=== PATIENT | female | born 1995 | race Caucasian/White ===

== ENCOUNTER 2016-06-24 22:29 | Observation (INO) | payer MEDICAID ==
[2016-06-24 23:15] LABS: Bacteria FEW /HPF (NEGATIVE); COMPLETE URINE MICROSCOPIC? YES; Collection Type CLEAN CATCH; Epithelial Cells FEW /HPF (FEW); Mucus SLIGHT /HPF (NEGATIVE); Ph 6.5 (5-6)
[2016-06-24] MEDS ORDERED: TYLENOL EXTRA STRENGTH 500 MG PO ONE (23:52)
[2016-06-24] MEDS ORDERED: TYLENOL EXTRA STRENGTH 500 MG ONE (23:58)
[2016-06-25 03:09] VITALS: BP 108/62; PULSE 88
== END 2016-06-25 02:45 | disposition home or self-care (01) ==
LOC: MED SURG 22:29
PROVIDERS: ADMIT Family Medicine; ATTEND Family Medicine
DX: Z34.83 Encounter for supervision of other normal pregnancy, third trimester (principal); S80.211A Abrasion, right knee, initial encounter; M25.472 Effusion, left ankle; W01.198A Fall on same level from slipping, tripping and stumbling with subsequent striking against other object, initial encounter; Y92.009 Unspecified place in unspecified non-institutional (private) residence as the place of occurrence of the external cause
CPT/HCPCS: 80307; 81000; G0378

== ENCOUNTER 2016-07-27 04:03 | Inpatient (IN) | payer MEDICAID ==
[2016-07-27] MEDS ORDERED: BRETHINE 1 MG/ML SQ PRN (04:06)
[2016-07-27] MEDS ORDERED: XYLOCAINE 1% HCL 20 ML MDV IJ PRN (04:06)
[2016-07-27] MEDS ORDERED: PITOCIN 30 UNITS/ LR 500 ML 500 ML IV SCH ×2 (04:30)
[2016-07-27] MEDS: Lactated Ringers 1,000 ML IV SCH ×3 (05:11→16:08)
[2016-07-27 05:55] LABS: Mean Cell Volume 85.8 fl (78-100); Mean Corpuscular Hemoglobin 27.9 pg (26-32); Mean Platelet Volume 10.1 fl (6-9.5); Platelet Count 212 K/mm3 (150-450); Red Blood Count 4.08 M/mm3 (4.1-5.4); Red Cell Distribution Width 13.7 % (11.5-14.0)
[2016-07-27 06:33] LABS: BAND 1 % (0.0-2.0); Eosinophil 2 % (0.00-3.0); Total Cells Counted 100
[2016-07-27 06:34] LABS: Platelet Estimate NORMAL (NORMAL)
[2016-07-27] MEDS ORDERED: Lactated Ringers 1,000 ML IV ONE (08:54)
[2016-07-27] MEDS ORDERED: OB EPIDURAL NAROPIN/SUFENTANIL IN NACL EPIDURAL PRN (08:54)
[2016-07-27] MEDS ORDERED: Ephedrine Sulfate 50 MG/ML IV PRN (08:54)
[2016-07-27] MEDS ORDERED: Zofran 4 MG/2 ML VIAL IV PRN (14:06)
[2016-07-27] MEDS ORDERED: Dulcolax 10 MG SUPP PR PRN (15:44)
[2016-07-27] MEDS ORDERED: CORTISONE 1% CREAM TP PRN (15:44)
[2016-07-27] MEDS ORDERED: TUCKS TP PRN (15:44)
[2016-07-27] MEDS ORDERED: Ambien 10 MG PO PRN (15:44)
[2016-07-27] MEDS ORDERED: Anucort-HC SUPPOSITORY PR PRN (15:44)
[2016-07-27] MEDS ORDERED: Restoril 15 MG PO PRN (15:44)
[2016-07-27] MEDS ORDERED: Mylicon 80MG PO PRN (15:44)
[2016-07-27] MEDS ORDERED: TYLENOL EXTRA STRENGTH 500 MG PO PRN (15:44)
[2016-07-27] MEDS ORDERED: Dermoplast Spray TP PRN (15:44)
[2016-07-27] MEDS ORDERED: LANSINOH 40 GM TOP PRN (15:44)
[2016-07-27] MEDS: Tylenol #3 Tablet PO PRN ×2 (16:06→20:01)
[2016-07-27] MEDS ORDERED: M-M-R II Vaccine With Diluent SQ ONE (18:00)
[2016-07-27] MEDS: MOTRIN 400 MG PO PRN (18:28)
[2016-07-27] MEDS ORDERED: Colace 100 MG ONE (19:58)
[2016-07-27] MEDS: Colace 100 MG PO SCH (20:01)
[2016-07-27] MEDS: Norco 10/325 MG Tablet PO PRN (21:54)
[2016-07-28] MEDS: MOTRIN 400 MG PO PRN ×3 (02:19→20:19)
[2016-07-28] MEDS: Norco 10/325 MG Tablet PO PRN (03:55)
[2016-07-28 05:33] LABS: Mean Cell Volume 87.6 fl (78-100); Mean Corpuscular Hemoglobin 27.7 pg (26-32); Mean Platelet Volume 9.5 fl (6-9.5); Platelet Count 204 K/mm3 (150-450); Red Blood Count 3.39 M/mm3 (4.1-5.4); Red Cell Distribution Width 13.7 % (11.5-14.0); White Blood Count 14.5 K/mm3 (4.0-10.5)
[2016-07-28 07:22] LABS: Eosinophil 1 % (0.00-3.0); Total Cells Counted 100
[2016-07-28 07:23] LABS: ANISOCYTOSIS 1+; Basophilic Stippling 1+; Platelet Estimate NORMAL (NORMAL); Poikilocytosis 1+; Polychromasia 1+
[2016-07-28] MEDS: Colace 100 MG PO SCH ×2 (10:24→20:19)
[2016-07-28] MEDS: FERREX 150 PO SCH (10:24)
[2016-07-29] MEDS: MOTRIN 400 MG PO PRN ×2 (03:36→10:05)
[2016-07-29] MEDS: Tylenol #3 Tablet PO PRN (04:36)
--- NOTE | 2016-07-29 09:01 | PCM.DS ---
Discharge Summary Date of Admission: 07/27/16 08:30 Admitting Physician: MINA MERRITT Consults: Consults on Case 07/27/16 08:55 Notify Anesthesia Provider PRN 07/27/16 15:44 Notify Physician ROUTINE Primary Care Provider: MINA MERRITT Allergies Allergies No Known Drug Allergies Allergy (Verified 06/24/16 22:59) Hospital Summary - Hospital Course Hospital Course: patient induced electively at 39wks, had 8# male infant with 3rd degree perineal laceration repair. she has mild lochia after delivery, tolerating po intake, no problems or concerns. - Vitals & Intake/Output Vital Signs: Vital Signs Temperature 98.3 F 07/29/16 02:00 Pulse Rate 68 07/29/16 02:00 Respiratory Rate 20 07/29/16 02:00 Blood Pressure 95/50 07/29/16 02:00 O2 Sat by Pulse Oximetry Intake & Output: Intake & Output 07/26/16 07/27/16 07/28/16 07/29/16 11:59 11:59 11:59 11:59 Intake Total 1999 8395 2750 Balance 199995 2750 Weight 90.265 kg - Lab Result Diagrams: 07/28/16 05:05 Discharge Exam General Appearance: no apparent distress, alert Skin Exam: normal color, warm, dry Respiratory Exam: normal breath sounds, lungs clear, No respiratory distress Cardiovascular Exam: regular rate/rhythm, normal heart sounds Gastrointestinal/Abdomen Exam: soft, No tenderness, No mass Extremity Exam: normal inspection, normal range of motion Final Diagnosis/Problem List - Final Discharge Diagnosis/Problem (1) Third degree perineal laceration Current Visit: Yes Status: Acute (2) Vaginal delivery Current Visit: No Status: Acute - Discharge Disposition: Home, Self-Care Condition: Stable Prescriptions: New Docusate Sodium 100 mg [Colace 100 MG] 100 mg PO BID #60 capsule Ibuprofen 600 mg PO TID PRN #30 tablet Continue Ranitidine HCl [Zantac] 1 tab PO DAILY Discontinued Vits W-Ca,Fe,FA(<1Mg) [] 1 each PO DAILY Follow up with: MINA MERRITT MD [Primary Care Provider] - 1 Week
[2016-07-29] MEDS: Colace 100 MG PO SCH (10:05)
[2016-07-29] MEDS: FERREX 150 PO SCH (10:05)
[2016-07-29 13:45] VITALS: BP 105/59; PULSE 82; O2SAT 100
== END 2016-07-29 13:30 | disposition home or self-care (01) | DRG 775 ==
LOC: OB 04:03 → OBSVTOIN 08:30 → OB 08:30
PROVIDERS: ADMIT Family Medicine; ATTEND Family Medicine
PROC: 10E0XZZ Delivery of Products of Conception, External Approach (ICD-10-PCS; principal; 2016-07-27)
PROC: 0DQR0ZZ Repair Anal Sphincter, Open Approach (ICD-10-PCS; 2016-07-27)
DX: O70.20 Third degree perineal laceration during delivery, unspecified (principal); Z3A.39 39 weeks gestation of pregnancy; Z37.0 Single live birth
CPT/HCPCS: 01967; 36415; 80307; 85025; 90471; 90707; G0378; J2405; J2590; J2795; A9270-GY

== ENCOUNTER 2017-10-25 09:51 | Emergency (ER) | payer BC, MEDICAID ==
--- NOTE | 2017-10-25 10:19 | ERPHSYRPT ---
- History of Present Illness Time Seen by Provider: 10/25/17 10:19 Source: patient, family Exam Limitations: no limitations Physician History: The patient is a 21-year-old female with mother complaining that she believes she has a UTI. 2 days ago she had some mild burning when urinating. She then took Azo from [id number] and things were better until last night. From 3 AM until this morning every time she urinated there was burning and urgency. She denies abdominal pain. Her past medical history is significant for frequent UTIs. According to the patient she gets a UTI every time she drinks tea or pop. Last night she drank tea. Timing/Duration: day(s) (2), gradual onset, worse Activites at Onset: none Quality: burning Onset Location: suprapubic Pain Radiation: none Severity of Pain-Max: moderate Severity of Pain-Current: moderate Prior abdominal problems: none Sexual intercourse history: non-contributory Modifying Factors: Improves With: nothing Associated Symptoms: denies symptoms Allergies/Adverse Reactions: No Known Drug Allergies Allergy (Verified 10/25/17 10:24) Hx Tetanus, Diphtheria Vaccination/Date Given: Yes Hx Influenza Vaccination/Date Given: No Hx Pneumococcal Vaccination/Date Given: No - Review of Systems Constitutional: No Fever, No Chills Eyes: No Symptoms Ears, Nose, & Throat: No Symptoms Respiratory: No Cough, No Dyspnea Cardiac: No Chest Pain, No Edema, No Syncope Abdominal/Gastrointestinal: No Abdominal Pain, No Nausea, No Vomiting, No Diarrhea Genitourinary Symptoms: Dysuria, Frequency, Urgency Musculoskeletal: No Back Pain, No Neck Pain Skin: No Rash Neurological: No Dizziness, No Focal Weakness, No Sensory Changes Psychological: No Symptoms Endocrine: No Symptoms Hematologic/Lymphatic: No Symptoms Immunological/Allergic: No Symptoms All Other Systems: Reviewed and Negative - Past Medical History Pertinent Past Medical History: No Neurological History: No Pertinent History Cardiac History: No Pertinent History Respiratory History: No Pertinent History Endocrine Medical History: No Pertinent History Musculoskeletal History: Fractures GI Medical History: No Pertinent History History: No Pertinent History Psycho-Social History: No Pertinent History Female Reproductive Disorders: No Pertinent History Other Medical History: had R femur fracture as - Past Surgical History Past Surgical History: Yes Neuro Surgical History: No Pertinent History Cardiac: No Pertinent History Respiratory: No Pertinent History Gastrointestinal: No Pertinent History Genitourinary: No Pertinent History Female Surgical History: No Pertinent History Other Surgical History: femur fx - Social History Smoking Status: Never smoker Exposure to second hand smoke: No Drug Use: none Patient Lives Alone: No - Nursing Vital Signs Nursing Vital Signs: Initial Vital Signs Temperature 97.6 F 10/25/17 10:02 Pulse Rate 80 10/25/17 10:02 Respiratory Rate 16 10/25/17 10:02 Blood Pressure 122/85 10/25/17 10:02 O2 Sat by Pulse Oximetry 100 10/25/17 10:02 Pain Scale Pain Intensity 10 - Physical Exam General Appearance: no apparent distress, alert Eye Exam: PERRL/EOMI, eyes nml inspection Ears, Nose, Throat Exam: normal ENT inspection, TMs normal, pharynx normal, moist mucous membranes Neck Exam: normal inspection, non-tender, supple, full range of motion Respiratory Exam: normal breath sounds, lungs clear, No respiratory distress Cardiovascular Exam: regular rate/rhythm, normal heart sounds, normal peripheral pulses Gastrointestinal/Abdomen Exam: soft, No tenderness, No mass Pelvic Exam: not done Rectal Exam: not done Back Exam: normal inspection, normal range of motion, No CVA tenderness, No vertebral tenderness Extremity Exam: normal inspection, normal range of motion, pelvis stable Neurologic Exam: alert, oriented x 3, cooperative, household worker II-XII nml as tested, normal mood/affect, sensation nml, No motor deficits Skin Exam: normal color, warm, dry Lymphatic Exam: No adenopathy SpO2 Interpretation: normal Ordered Tests: Active Orders 24 hr Category Date Time Status CULTURE,URINE Stat Lab 10/25/17 10:20 Received UA W/ MICROSCOPIC Stat Lab 10/25/17 10:20 Completed Lab/Rad Data: Laboratory Results 10/25/17 Range/Units 10:20 Ur Collection Type VOID Urine Color YELLOW (YELLOW) Urine Appearance CLOUDY (CLEAR) Urine pH 6.0 (5-6) Ur Specific [place] 1.020 (1.005-1.025) Urine Protein TRACE (Negative) Urine Ketones NEGATIVE (NEGATIVE) Urine Blood 50 (0-5) Joe/ul Urine Nitrite POSITIVE (NEGATIVE) Urine Bilirubin NEGATIVE (NEGATIVE) Urine Urobilinogen NORMAL (0-1) mg/dL Ur Leukocyte Esterase 1+ (NEGATIVE) Urine Microscopic RBC 0-2 (0-2) /HPF Urine Microscopic WBC >100 (0-5) /HPF Ur Epithelial Cells MODERATE (FEW) /HPF Urine Bacteria MANY (NEGATIVE) /HPF Urine Mucus MODERATE (NEGATIVE) /HPF Urine Culture Reflexed YES (NO) Urine Glucose NEGATIVE (NEGATIVE) mg/dL Specimen Received 10/25/17 1020 - Progress Progress: unchanged Counseled pt/family regarding: lab results, diagnosis, need for follow-up - Departure Time of Disposition: 11:02 Departure Disposition: Home Clinical Impression: UTI (urinary tract infection) Condition: Stable Critical Care Time: No Referrals: MINA MERRITT MD [Primary Care Provider] - Additional Instructions: You have a UTI. Take Keflex 500 mg 4 times a day for 7 days. You may also take Azo [id number] as directed and as needed. Take Tylenol and ibuprofen as needed. Stay well hydrated. Follow-up in 3 days with your primary medical doctor. Prescriptions: Cephalexin Mh 500 mg [Keflex 500 mg] 1 cap PO QID #28 capsule
[2017-10-25 10:22] VITALS: BP 122/85; PULSE 80; O2SAT 100
[2017-10-25 10:32] LABS: Appearance CLOUDY (CLEAR); Bilirubin NEGATIVE (NEGATIVE); Blood 50 Ery/ul (0-5); Glucose NEGATIVE (NEGATIVE); Ketones NEGATIVE (NEGATIVE); Leukocyte Esterase 1+ (NEGATIVE); Nitrite POSITIVE (NEGATIVE); Protein,Urine Dip TRACE (Negative); Urobilinogen NORMAL mg/dL (0-1)
[2017-10-25 10:50] LABS: Bacteria MANY /HPF (NEGATIVE); Epithelial Cells MODERATE /HPF (FEW); Mucus MODERATE /HPF (NEGATIVE); RBC 0-2 /HPF (0-2); WBC >100 /HPF (0-5)
== END 2017-10-25 11:16 | disposition home or self-care (01) ==
LOC: ED 09:51
DX: N39.0 Urinary tract infection, site not specified (principal)
CPT/HCPCS: 81000; 87077; 87086; 87186; 99283

== ENCOUNTER 2018-02-15 16:38 | Emergency (ER) | payer BC ==
[2018-02-15] MEDS ORDERED: Sodium Chloride 0.9% 1000 ML 1,000 ML IV STA (17:14)
[2018-02-15] MEDS ORDERED: Zofran 4 MG/2 ML VIAL IV ONE (17:14)
[2018-02-15] MEDS ORDERED: Sodium Chloride 0.9% 1000 ML 1,000 ML ONE (17:23)
[2018-02-15] MEDS ORDERED: Zofran 4 MG/2 ML VIAL ONE (17:23)
[2018-02-15 17:39] LABS: BASOPHIL % 0.2 % (0.0-0.4); Basophil (Absolute #) 0.02 (0-0.4); Eosinophil % 0.7 % (0.00-5.0); Eosinophil (Absolute #) 0.07 (0-0.5); Granulocyte Absolute (ANC) 7.07 (1.4-6.9); Hematocrit 43.8 % (35-47); Lymphocyte (Absolute #) 2.26 (1.0-4.6); Lymphocytes % 22.1 % (24.0-44.0); Mean Cell Volume 86.4 fl (78-100); Mean Corpuscular Hemoglobin 29.6 pg (26-32); Mean Corpuscular Hgb Concent. 34.2 g/dl (32-36); Mean Platelet Volume 9.7 fl (6-9.5); Monocyte (Absolute #) 0.82 (0.0-1.3); Platelet Count 265 K/mm3 (150-450); Red Blood Count 5.07 M/mm3 (4.1-5.4); Red Cell Distribution Width 12.9 % (11.5-14.0); White Blood Count 10.2 K/mm3 (4.0-10.5)
[2018-02-15 17:45] VITALS: O2SAT 98
[2018-02-15 17:51] LABS: Appearance CLOUDY (CLEAR); Bilirubin NEGATIVE (NEGATIVE); Blood NEGATIVE Ery/ul (0-5); Glucose NEGATIVE (NEGATIVE); Ketones SMALL (NEGATIVE); Leukocyte Esterase SMALL (NEGATIVE); Nitrite NEGATIVE (NEGATIVE); Protein,Urine Dip NEGATIVE (Negative); Specific Gravity 1.026 (1.005-1.025); Urobilinogen 4 mg/dL (0-1)
[2018-02-15 18:05] LABS: BLOOD UREA NITROGEN 10 mg/dL (7-17); CHLORIDE 102 mmol/L (98-107); Calcium 9.5 mg/dL (8.4-10.2); Carbon Dioxide 22 mmol/L (22-30); Creatinine 1 0.48 mg/dL (0.52-1.04); Glucose 82 mg/dL (74-106); SODIUM 138 mmol/L (137-145)
--- NOTE | 2018-02-15 18:05 | ERPHSYRPT ---
- History of Present Illness Time Seen by Provider: 02/15/18 17:00 Source: patient Exam Limitations: clinical condition Patient Subjective Stated Complaint: Pt states "I found out I was pregnanat last tuesday and now I am 6 weeks and I just do not feel well. I don't feel like eating, I am tired. I just thought I would come get checked out." Triage Nursing Assessment: Pt alert and oriented X 3, skin pwd. Pt ambulates with an upright steady gait, able to speak in clear full sentences. Pt in no apparent repsiratory distress. Physician History: PATIENT IS A -3, PARA-2, 6 WEEK GESTATION COMPLAINS OF WEAKNESS, ASSOCIATED WITH NAUSEA. DENIES EMESIS, ABDOMINAL PAIN, URINARY SYMPTOMS, COUGH OR FEVER. Timing/Duration: week(s) Severity: moderate Modifying Factors: Improves With: movement, ibuprofen Allergies/Adverse Reactions: No Known Drug Allergies Allergy (Verified 10/25/17 10:24) Home Medications: Vit/Iron Fum/Folic AC [ Tablet] 1 tab PO DAILY 02/15/18 [ History] Hx Tetanus, Diphtheria Vaccination/Date Given: No Hx Influenza Vaccination/Date Given: No Hx Pneumococcal Vaccination/Date Given: No Immunizations Up to Date: Yes - Review of Systems Constitutional: Lethargy Eyes: No Symptoms Ears, Nose, & Throat: No Symptoms Respiratory: No Cough, No Dyspnea Cardiac: No Chest Pain, No Edema, No Syncope Abdominal/Gastrointestinal: Nausea, No Abdominal Pain, No Vomiting, No Diarrhea Genitourinary Symptoms: No Dysuria Musculoskeletal: No Back Pain, No Neck Pain Skin: No Rash Neurological: Lethargy Psychological: No Symptoms Endocrine: No Symptoms - Past Medical History Pertinent Past Medical History: No Neurological History: No Pertinent History Cardiac History: No Pertinent History Respiratory History: No Pertinent History Endocrine Medical History: No Pertinent History Musculoskeletal History: Fractures GI Medical History: No Pertinent History History: No Pertinent History Psycho-Social History: No Pertinent History Female Reproductive Disorders: No Pertinent History Other Medical History: had R femur fracture as infant - Past Surgical History Past Surgical History: Yes Neuro Surgical History: No Pertinent History Cardiac: No Pertinent History Respiratory: No Pertinent History Gastrointestinal: No Pertinent History Genitourinary: No Pertinent History Female Surgical History: No Pertinent History Other Surgical History: femur fx - Social History Smoking Status: Never smoker Exposure to second hand smoke: No Drug Use: none Patient Lives Alone: No - Female History Hx Last Menstrual Period: 01/01/2018 Hx Now: Yes Expected Date of Delivery: 10/08/18 - Nursing Vital Signs Nursing Vital Signs: Initial Vital Signs Temperature 98.9 F 02/15/18 16:52 Pulse Rate 84 02/15/18 16:52 Respiratory Rate 16 02/15/18 16:52 Blood Pressure 111/74 02/15/18 16:52 O2 Sat by Pulse Oximetry 100 02/15/18 16:52 Pain Scale Pain Intensity 0 - Physical Exam General Appearance: no apparent distress, alert Eye Exam: PERRL/EOMI, eyes nml inspection Ears, Nose, Throat Exam: normal ENT inspection, TMs normal, pharynx normal, moist mucous membranes Neck Exam: normal inspection, non-tender, supple, full range of motion Respiratory Exam: normal breath sounds, lungs clear, No respiratory distress Cardiovascular Exam: regular rate/rhythm, normal heart sounds, normal peripheral pulses Gastrointestinal/Abdomen Exam: soft, normal bowel sounds, No tenderness, No mass Pelvic Exam: not done Back Exam: normal inspection, normal range of motion, No CVA tenderness, No vertebral tenderness Extremity Exam: normal inspection, normal range of motion, pelvis stable Neurologic Exam: alert, oriented x 3, cooperative, normal mood/affect, nml cerebellar function, nml station & gait, sensation nml, No motor deficits Skin Exam: normal color, warm, dry, No rash Lymphatic Exam: No adenopathy SpO2: 98 Oxygen Delivery: Room Air Ordered Tests: Active Orders 24 hr Category Date Time Status BMP Stat Lab 02/15/18 17:30 Completed CBC W DIFF Stat Lab 02/15/18 17:30 Completed MAGNESIUM Stat Lab 02/15/18 17:30 Completed UA W/RFX UR CULTURE Stat Lab 02/15/18 17:30 Completed Urine Triage Profile Stat Lab 02/15/18 17:52 Completed Medication Summary Generic Name Dose Route Start Last Admin Trade Name Freq PRN Reason Stop Dose Admin Ceftriaxone Sodium/Dextrose 1 g in 50 mls @ 100 mls/hr 02/15/18 18:17 18:20 Rocephin 1 Gm-D5w 50 Ml Bag IV 02/15/18 18:46 100 ml/hr STAT STA 100 mls/hr Administration Discontinued Medications Generic Name Dose Route Start Last Admin Trade Name Freq PRN Reason Stop Dose Admin Sodium Chloride 1,000 mls @ 999 mls/hr 02/15/18 17:14 02/15/18 17:34 Sodium Chloride 0.9% 1000 Ml IV 02/15/18 18:14 999 mls/hr .Q1H1M STA Administration Sodium Chloride Confirm 02/15/18 17:23 Sodium Chloride 0.9% 1000 Ml Administered 02/15/18 17:24 Dose 1,000 mls @ ud .ROUTE .STK-MED ONE Ceftriaxone Sodium/Dextrose Confirm 02/15/18 18:19 Rocephin 1 Gm-D5w 50 Ml Bag Administered 02/15/18 18:20 Dose 1 g in 50 mls @ ud IV .STK-MED ONE Ondansetron HCl 4 mg 02/15/18 17:14 02/15/18 17:34 Zofran 4 Mg/2 Ml Vial IV 02/15/18 17:15 4 mg STAT ONE Administration Ondansetron HCl Confirm 02/15/18 17:23 Zofran 4 Mg/2 Ml Vial Administered 02/15/18 17:24 Dose 4 mg .ROUTE .STK-MED ONE Lab/Rad Data: Laboratory Result Diagrams 02/15/18 17:30 02/15/18 17:30 Laboratory Results 02/15/18 02/15/18 02/15/18 Range/Units 17:52 17:30 17:30 WBC (4.0-10.5) K/mm3 RBC (4.1-5.4) M/mm3 Hgb (12.0-16.0) gm/dl Hct (35-47) % MCV (78-100) fl MCH (26-32) pg MCHC (32-36) g/dl RDW (11.5-14.0) % Plt Count (150-450) K/mm3 MPV (6-9.5) fl Gran % (36.0-66.0) % Eos # (Auto) (0-0.5) Absolute Lymphs (auto) (1.0-4.6) Absolute Monos (auto) (0.0-1.3) Lymphocytes % (24.0-44.0) % Monocytes % (0.0-12.0) % Eosinophils % (0.00-5.0) % Basophils % (0.0-0.4) % Absolute Granulocytes (1.4-6.9) Basophils # (0-0.4) Sodium (137-145) mmol/L Potassium (3.5-5.1) mmol/L Chloride (98-107) mmol/L Carbon Dioxide (22-30) mmol/L Anion Gap (5-15) MEQ/L BUN (7-17) mg/dL Creatinine (0.52-1.04) mg/dL Estimated GFR ML/MIN Glucose (74-106) mg/dL Calcium (8.4-10.2) mg/dL Magnesium 1.7 (1.6-2.3) mg/dL Urine Color YELLOW (YELLOW) Urine Appearance CLOUDY (CLEAR) Urine pH 5.0 (5-6) Ur Specific [place] 1.026 (1.005-1.025) Urine Protein NEGATIVE (Negative) Urine Ketones SMALL (NEGATIVE) Urine Blood NEGATIVE (0-5) Joe/ul Urine Nitrite NEGATIVE (NEGATIVE) Urine Bilirubin NEGATIVE (NEGATIVE) Urine Urobilinogen 4 (0-1) mg/dL Ur Leukocyte Esterase SMALL (NEGATIVE) Urine WBC (Auto) 6-10 (0-5) /HPF Urine RBC (Auto) 0-2 (0-2) /HPF U Hyaline Cast (Auto) 3-5 (0-2) /LPF U Epithel Cells (Auto) RARE (FEW) /HPF Urine Mucus (Auto) MANY (NEGATIVE) /HPF Urine Culture Reflexed NO (NO) Urine Glucose NEGATIVE (NEGATIVE) mg/dL Urine Opiates Level NEGATIVE (NEGATIVE) Ur Methadone NEGATIVE (NEGATIVE) Urine Barbiturates NEGATIVE (NEGATIVE) Ur Phencyclidine (PCP) NEGATIVE (NEGATIVE) Urine Amphetamine NEGATIVE (NEGATIVE) U Benzodiazepine Level NEGATIVE (NEGATIVE) Urine Cocaine NEGATIVE (NEGATIVE) Urine Marijuana (THC) NEGATIVE (NEGATIVE) 02/15/18 02/15/18 Range/Units 17:30 17:30 WBC 10.2 (4.0-10.5) K/mm3 RBC 5.07 (4.1-5.4) M/mm3 Hgb 15.0 (12.0-16.0) gm/dl Hct 43.8 (35-47) % MCV 86.4 (78-100) fl MCH 29.6 (26-32) pg MCHC 34.2 (32-36) g/dl RDW 12.9 (11.5-14.0) % Plt Count 265 (150-450) K/mm3 MPV 9.7 H (6-9.5) fl Gran % 69.0 H (36.0-66.0) % Eos # (Auto) 0.07 (0-0.5) Absolute Lymphs (auto) 2.26 (1.0-4.6) Absolute Monos (auto) 0.82 (0.0-1.3) Lymphocytes % 22.1 L (24.0-44.0) % Monocytes % 8.0 (0.0-12.0) % Eosinophils % 0.7 (0.00-5.0) % Basophils % 0.2 (0.0-0.4) % Absolute Granulocytes 7.07 H (1.4-6.9) Basophils # 0.02 (0-0.4) Sodium 138 (137-145) mmol/L Potassium 4.0 (3.5-5.1) mmol/L Chloride 102 (98-107) mmol/L Carbon Dioxide 22 (22-30) mmol/L Anion Gap 18.0 H (5-15) MEQ/L BUN 10 (7-17) mg/dL Creatinine 0.48 L (0.52-1.04) mg/dL Estimated GFR > 60.0 ML/MIN Glucose 82 (74-106) mg/dL Calcium 9.5 (8.4-10.2) mg/dL Magnesium (1.6-2.3) mg/dL Urine Color (YELLOW) Urine Appearance (CLEAR) Urine pH (5-6) Ur Specific [place] (1.005-1.025) Urine Protein (Negative) Urine Ketones (NEGATIVE) Urine Blood (0-5) Joe/ul Urine Nitrite (NEGATIVE) Urine Bilirubin (NEGATIVE) Urine Urobilinogen (0-1) mg/dL Ur Leukocyte Esterase (NEGATIVE) Urine WBC (Auto) (0-5) /HPF Urine RBC (Auto) (0-2) /HPF U Hyaline Cast (Auto) (0-2) /LPF U Epithel Cells (Auto) (FEW) /HPF Urine Mucus (Auto) (NEGATIVE) /HPF Urine Culture Reflexed (NO) Urine Glucose (NEGATIVE) mg/dL Urine Opiates Level (NEGATIVE) Ur Methadone (NEGATIVE) Urine Barbiturates (NEGATIVE) Ur Phencyclidine (PCP) (NEGATIVE) Urine Amphetamine (NEGATIVE) U Benzodiazepine Level (NEGATIVE) Urine Cocaine (NEGATIVE) Urine Marijuana (THC) (NEGATIVE) - Progress Progress Note: 02/15/18 18:06 IV NORMAL SALINE I LITER OVER 1 HOUR, ROCEPHIN 1GM IVPB FOR UTI WBC 6-10 Counseled pt/family regarding: lab results, diagnosis, need for follow-up - Departure Time of Disposition: 18:45 Departure Disposition: Home Clinical Impression: , URINARY TRACT INFECTION Condition: Stable Critical Care Time: No Referrals: MINA MERRITT MD [Primary Care Provider] - Additional Instructions: DRINK PLENTY OF FLUIDS. ANTIBIOTIC MACROBID 100MG TWICE DAILY FOR 10 DAYS. CALL YOUR PRIMARY CARE PROVIDER TOMORROW FOR FOLLOWUP. Prescriptions: Nitrofurantoin Macro 100 mg [Macrobid 100MG Capsule] 100 mg PO BID #20 cap
[2018-02-15 18:12] LABS: Amphetamine,Urine NEGATIVE (NEGATIVE); Barbiturate,Urine NEGATIVE (NEGATIVE); Benzodiazepine,Urine NEGATIVE (NEGATIVE); Cocaine,Urine NEGATIVE (NEGATIVE); Methadone,Urine NEGATIVE (NEGATIVE); Opiate,Urine NEGATIVE (NEGATIVE); PCP,Urine NEGATIVE (NEGATIVE); THC,Urine NEGATIVE (NEGATIVE)
[2018-02-15] MEDS ORDERED: ROCEPHIN 1 Gm-D5w 50 ml Bag** 1 G/50 ML IVPB IV STA (18:17)
[2018-02-15] MEDS ORDERED: ROCEPHIN 1 Gm-D5w 50 ml Bag** 1 G/50 ML IVPB IV ONE (18:19)
[2018-02-15 18:42] VITALS: BP 111/69; PULSE 60
== END 2018-02-15 18:52 | disposition home or self-care (01) ==
LOC: ED 16:38
DX: O23.41 Unspecified infection of urinary tract in pregnancy, first trimester (principal); Z3A.01 Less than 8 weeks gestation of pregnancy
CPT/HCPCS: 36415; 80048; 80307; 81001; 83735; 85025; 96360; 96365; 96374; 96375; 99284; J0696; J2405

== ENCOUNTER 2018-05-28 02:10 | Observation (INO) | payer MEDICAID ==
[2018-05-28 02:46] VITALS: BP 114/73; PULSE 100
[2018-05-28 05:03] LABS: Amphetamine,Urine NEGATIVE (NEGATIVE); Barbiturate,Urine NEGATIVE (NEGATIVE); Benzodiazepine,Urine NEGATIVE (NEGATIVE); Cocaine,Urine NEGATIVE (NEGATIVE); Methadone,Urine NEGATIVE (NEGATIVE); Opiate,Urine NEGATIVE (NEGATIVE); PCP,Urine NEGATIVE (NEGATIVE); THC,Urine NEGATIVE (NEGATIVE)
== END 2018-05-28 03:30 | disposition home or self-care (01) ==
LOC: OB 02:10 → UNDOADMOB 02:10 → OB 02:11 → UNDODISOB 03:30
PROVIDERS: ADMIT Family Medicine; ATTEND Family Medicine
DX: Z34.81 Encounter for supervision of other normal pregnancy, first trimester (principal)
CPT/HCPCS: 80307; G0378

== ENCOUNTER 2018-06-27 20:51 | Observation (INO) | payer MEDICAID, OTHER ==
[2018-06-27 21:43] LABS: Appearance SLIGHTLY CLOUDY (CLEAR); Bacteria FEW /HPF (NEGATIVE); Bilirubin NEGATIVE (NEGATIVE); Blood NEGATIVE Ery/ul (0-5); Epithelial Cells MODERATE /HPF (FEW); Glucose NEGATIVE (NEGATIVE); Ketones MODERATE (NEGATIVE); Leukocyte Esterase TRACE (NEGATIVE); Mucus MODERATE /HPF (NEGATIVE); Nitrite NEGATIVE (NEGATIVE); Protein,Urine Dip 30 (Negative); RBC 0-2 /HPF (0-2); Specific Gravity 1.025 (1.005-1.025); Urobilinogen 4 mg/dL (0-1)
[2018-06-27 21:49] LABS: Amphetamine,Urine NEGATIVE (NEGATIVE); Barbiturate,Urine NEGATIVE (NEGATIVE); Benzodiazepine,Urine NEGATIVE (NEGATIVE); Cocaine,Urine NEGATIVE (NEGATIVE); Methadone,Urine NEGATIVE (NEGATIVE); Opiate,Urine NEGATIVE (NEGATIVE); PCP,Urine NEGATIVE (NEGATIVE); THC,Urine NEGATIVE (NEGATIVE)
[2018-06-27] MEDS ORDERED: Sodium Chloride 0.9% 1000 ML 1,000 ML IV STA (22:29)
[2018-06-27] MEDS ORDERED: Lactated Ringers 1,000 ML IV SCH (22:30)
[2018-06-27] MEDS ORDERED: Zofran 4 MG/2 ML VIAL IV PRN (22:30)
[2018-06-27] MEDS ORDERED: Sodium Chloride 0.9% 1000 ML 1,000 ML ONE (22:32)
[2018-06-27 23:01] LABS: BASOPHIL % 0.1 % (0.0-0.4); Basophil (Absolute #) 0.01 (0-0.4); Eosinophil % 0.3 % (0.00-5.0); Eosinophil (Absolute #) 0.03 (0-0.5); Granulocyte Absolute (ANC) 8.59 (1.4-6.9); Granulocytes % 84.5 % (36.0-66.0); Hematocrit 42.7 % (35-47); Hemoglobin 14.3 gm/dl (12.0-16.0); Lymphocyte (Absolute #) 0.93 (1.0-4.6); Lymphocytes % 9.2 % (24.0-44.0); Mean Corpuscular Hemoglobin 30.5 pg (26-32); Mean Corpuscular Hgb Concent. 33.5 g/dl (32-36); Mean Platelet Volume 9.5 fl (6-9.5); Monocytes % 5.9 % (0.0-12.0); Platelet Count 207 K/mm3 (150-450); Red Blood Count 4.69 M/mm3 (4.1-5.4); Red Cell Distribution Width 12.7 % (11.5-14.0); White Blood Count 10.2 K/mm3 (4.0-10.5)
[2018-06-27] MEDS ORDERED: Zofran 4 MG/2 ML VIAL ONE (23:01)
[2018-06-27] MEDS ORDERED: Lactated Ringers 1,000 ML IV ONE (23:15)
[2018-06-27 23:18] LABS: ALBUMIN 3.9 g/dL (3.5-5.0); ALKALINE PHOSPHATASE 47 U/L (38-126); ANION GAP 14.2 MEQ/L (5-15); BLOOD UREA NITROGEN 7 mg/dL (7-17); CHLORIDE 105 mmol/L (98-107); Calcium 8.5 mg/dL (8.4-10.2); Carbon Dioxide 21 mmol/L (22-30); Creatinine 1 0.39 mg/dL (0.52-1.04); Glucose 71 mg/dL (74-106); Potassium 3.4 mmol/L (3.5-5.1); SGOT/AST 19 U/L (14-36); SGPT/ALT 15 U/L (0-35); SODIUM 137 mmol/L (137-145); Total Protein 7.5 g/dL (6.3-8.2)
[2018-06-27] MEDS ORDERED: TYLENOL 325 MG PO PRN (23:28)
[2018-06-27] MEDS ORDERED: TYLENOL 325 MG ONE (23:29)
[2018-06-28] MEDS ORDERED: Pepcid 20 MG VIAL IV ONE ×2 (01:55→02:01)
[2018-06-28 03:44] VITALS: BP 98/51; PULSE 85
== END 2018-06-28 02:40 | disposition home or self-care (01) ==
LOC: EDSTATUS 20:59 → OB 21:02
PROVIDERS: ADMIT Family Medicine; ATTEND Family Medicine
DX: Z34.82 Encounter for supervision of other normal pregnancy, second trimester (principal)
CPT/HCPCS: 36415; 80053; 80307; 81001; 85025; 87086; G0378; J2405; A9270-GY

== ENCOUNTER 2018-07-01 23:00 | Observation (INO) | payer OTHER ==
[2018-07-01 23:49] VITALS: BP 112/76; PULSE 98
[2018-07-02 00:23] LABS: Appearance CLOUDY (CLEAR); Bacteria RARE /HPF (NEGATIVE); Bilirubin NEGATIVE (NEGATIVE); Blood NEGATIVE Ery/ul (0-5); Calcium Oxalate Crystals 26-50 /HPF (NEGATIVE); Epithelial Cells FEW /HPF (FEW); Glucose NEGATIVE (NEGATIVE); Ketones NEGATIVE (NEGATIVE); Leukocyte Esterase MODERATE (NEGATIVE); Mucus SLIGHT /HPF (NEGATIVE); Nitrite NEGATIVE (NEGATIVE); Protein,Urine Dip 30 (Negative); RBC 0-2 /HPF (0-2); Specific Gravity 1.029 (1.005-1.025); Urobilinogen NEGATIVE mg/dL (0-1); WBC 26-50 /HPF (0-5)
== END 2018-07-02 01:10 | disposition home or self-care (01) ==
LOC: MED SURG 23:00
PROVIDERS: ADMIT Family Medicine; ATTEND Family Medicine
DX: Z34.82 Encounter for supervision of other normal pregnancy, second trimester (principal)
CPT/HCPCS: 81001; 87086; G0378

== ENCOUNTER 2018-08-29 01:50 | Observation (INO) | payer OTHER ==
[2018-08-29 02:07] VITALS: BP 117/72; PULSE 83
[2018-08-29 02:25] LABS: Appearance CLOUDY (CLEAR); Bacteria FEW /HPF (NEGATIVE); Bilirubin NEGATIVE (NEGATIVE); Blood NEGATIVE Ery/ul (0-5); Crystals Unidentified 25-50 /HPF (NEGATIVE); Epithelial Cells MODERATE /HPF (FEW); Glucose NEGATIVE (NEGATIVE); Ketones NEGATIVE (NEGATIVE); Leukocyte Esterase MODERATE (NEGATIVE); Mucus SLIGHT /HPF (NEGATIVE); Nitrite NEGATIVE (NEGATIVE); Protein,Urine Dip NEGATIVE (Negative); Specific Gravity 1.012 (1.005-1.025); Urobilinogen 2 mg/dL (0-1)
[2018-08-29 02:34] LABS: Amphetamine,Urine NEGATIVE (NEGATIVE); Barbiturate,Urine NEGATIVE (NEGATIVE); Benzodiazepine,Urine NEGATIVE (NEGATIVE); Cocaine,Urine NEGATIVE (NEGATIVE); Methadone,Urine NEGATIVE (NEGATIVE); Opiate,Urine NEGATIVE (NEGATIVE); PCP,Urine NEGATIVE (NEGATIVE); THC,Urine NEGATIVE (NEGATIVE)
== END 2018-08-29 03:05 | disposition home or self-care (01) ==
LOC: OB 01:50
PROVIDERS: ADMIT Family Medicine; ATTEND Family Medicine
DX: Z34.83 Encounter for supervision of other normal pregnancy, third trimester (principal)
CPT/HCPCS: 80307; 81001; 87086; G0378

== ENCOUNTER 2018-08-30 00:14 | Observation (INO) | payer OTHER ==
[2018-08-30 01:12] LABS: Amphetamine,Urine NEGATIVE (NEGATIVE); Barbiturate,Urine NEGATIVE (NEGATIVE); Benzodiazepine,Urine NEGATIVE (NEGATIVE); Cocaine,Urine NEGATIVE (NEGATIVE); Methadone,Urine NEGATIVE (NEGATIVE); Opiate,Urine NEGATIVE (NEGATIVE); PCP,Urine NEGATIVE (NEGATIVE); THC,Urine NEGATIVE (NEGATIVE)
[2018-08-30] MEDS ORDERED: Sodium Chloride 0.9% 1000 ML 1,000 ML IV STA (02:08)
[2018-08-30] MEDS ORDERED: TYLENOL 325 MG PO PRN (02:09)
[2018-08-30] MEDS ORDERED: Lactated Ringers 1,000 ML IV SCH (02:30)
--- NOTE | 2018-08-30 09:33 | XRAY ---
Indication: Back pain. Evaluate cervical length and AMIE. Limited OB ultrasound performed to evaluate AMIE and cervical length. 4 quadrant AMIE is 9.2 cm. Cervical length is 3.5 cm.
--- NOTE | 2018-08-30 09:35 | XRAY ---
Indication: Back pain. 34 weeks . Two-dimensional renal sonogram performed. Comparison: None Both kidneys normal in reniform shape with normal color perfusion. Right kidney measures 11.7 x 4.9 x 5.1 cm and the left measures 12.4 x 4.9 x 5.5 cm. Slightly prominent right renal pelvis, possible extrarenal pelvis. No suspicious solid/cystic mass, gross hydronephrosis, or perinephric fluid. Cortical medullary differentiation preserved without cortical thinning. Images of the urinary bladder grossly unremarkable with normal bilateral ureteral jets. Impression: Negative renal sonogram.
[2018-08-30] MEDS ORDERED: ROCEPHIN 1 Gm-D5w 50 ml Bag** 1 G/50 ML IVPB IV SCH ×2 (10:00→22:00)
[2018-08-30 10:48] VITALS: BP 109/73; PULSE 90
== END 2018-08-30 10:45 | disposition home or self-care (01) ==
LOC: OB 00:14
PROVIDERS: ADMIT Family Medicine; ATTEND Family Medicine
DX: Z34.83 Encounter for supervision of other normal pregnancy, third trimester (principal)
CPT/HCPCS: 76770; 76815; 80307; G0378; J0696; A9270-GY

== ENCOUNTER 2018-09-17 23:14 | Observation (INO) | payer OTHER ==
[2018-09-17 23:47] LABS: Amphetamine,Urine NEGATIVE (NEGATIVE); Appearance SLIGHTLY CLOUDY (CLEAR); Benzodiazepine,Urine NEGATIVE (NEGATIVE); Bilirubin NEGATIVE (NEGATIVE); Blood NEGATIVE Ery/ul (0-5); Cocaine,Urine NEGATIVE (NEGATIVE); Epithelial Cells FEW /HPF (FEW); Glucose NEGATIVE (NEGATIVE); Ketones TRACE (NEGATIVE); Leukocyte Esterase MODERATE (NEGATIVE); Methadone,Urine NEGATIVE (NEGATIVE); Mucus SLIGHT /HPF (NEGATIVE); Nitrite NEGATIVE (NEGATIVE); Opiate,Urine NEGATIVE (NEGATIVE); Protein,Urine Dip NEGATIVE (Negative); Specific Gravity 1.015 (1.005-1.025); THC,Urine NEGATIVE (NEGATIVE); Urobilinogen 4 mg/dL (0-1)
[2018-09-17 23:57] LABS: Barbiturate,Urine NEGATIVE (NEGATIVE); PCP,Urine NEGATIVE (NEGATIVE)
[2018-09-18] MEDS ORDERED: TYLENOL 325 MG PO PRN (00:10)
[2018-09-18] MEDS ORDERED: TYLENOL 325 MG ONE (00:12)
[2018-09-18 03:23] VITALS: PULSE 81
[2018-09-18 05:28] VITALS: BP 110/68
== END 2018-09-18 05:30 | disposition designated cancer center or children's hospital (05) ==
LOC: OB 23:14
PROVIDERS: ADMIT Family Medicine; ATTEND Family Medicine
DX: Z34.83 Encounter for supervision of other normal pregnancy, third trimester (principal)
CPT/HCPCS: 80307; 81001; G0378; A9270-GY

== ENCOUNTER 2018-09-20 23:53 | Observation (INO) | payer OTHER ==
[2018-09-21] MEDS ORDERED: Tums EX 750 MG PO PRN (03:21)
[2018-09-21] MEDS ORDERED: Tums EX 750 MG ONE (03:29)
[2018-09-21 05:09] VITALS: BP 106/69; PULSE 75
== END 2018-09-21 05:35 | disposition home or self-care (01) ==
LOC: OB 23:53
PROVIDERS: ADMIT Family Medicine; ATTEND Family Medicine
DX: Z34.83 Encounter for supervision of other normal pregnancy, third trimester (principal)
CPT/HCPCS: G0378 ×2; A9270-GY

== ENCOUNTER 2018-10-05 05:03 | Inpatient (IN) | payer OTHER ==
[2018-10-05] MEDS ORDERED: Zofran 4 MG/2 ML VIAL IV PRN (05:19)
[2018-10-05] MEDS ORDERED: TYLENOL EXTRA STRENGTH 500 MG PO PRN (05:19)
[2018-10-05] MEDS ORDERED: XYLOCAINE 1% HCL 20 ML MDV IJ PRN (05:19)
[2018-10-05] MEDS ORDERED: PITOCIN 30 UNITS/ LR 500 ML 500 ML IV SCH (05:30)
[2018-10-05] MEDS ORDERED: Lactated Ringers 1,000 ML IV ONE ×2 (05:46→08:21)
[2018-10-05 05:52] LABS: Hematocrit 39.5 % (35-47); Hemoglobin 13.1 gm/dl (12.0-16.0); Mean Cell Volume 90.8 fl (78-100); Mean Corpuscular Hemoglobin 30.1 pg (26-32); Mean Corpuscular Hgb Concent. 33.2 g/dl (32-36); Mean Platelet Volume 9.6 fl (6-9.5); Platelet Count 202 K/mm3 (150-450); Red Blood Count 4.35 M/mm3 (4.1-5.4); Red Cell Distribution Width 13.5 % (11.5-14.0); White Blood Count 11.7 K/mm3 (4.0-10.5)
[2018-10-05] MEDS ORDERED: PITOCIN 30 UNITS/ LR 500 ML 30 UNITS/500 ML IV.SOLN. IV SCH (06:00)
[2018-10-05] MEDS ORDERED: Lactated Ringers 1,000 ML IV SCH (06:00)
[2018-10-05 06:08] VITALS: O2SAT 100
[2018-10-05 06:17] LABS: Eosinophil 1 % (0.00-3.0); Lymphocytes 33 % (24-44); Monocyte 1 % (0.0-12.0); Neutrophils 65 % (36.0-66.0); Total Cells Counted 100
[2018-10-05 06:18] LABS: Platelet Estimate NORMAL (NORMAL)
[2018-10-05] MEDS ORDERED: Ephedrine Sulfate 50 MG/ML IV PRN (08:21)
[2018-10-05] MEDS ORDERED: OB EPIDURAL NAROPIN/SUFENTANIL IN NACL EPIDURAL PRN (08:21)
[2018-10-05] MEDS ORDERED: XYLOCAINE 1%/Epi 1:100000 MDV 20 ML IJ ONE (08:26)
[2018-10-05 09:20] LABS: Amphetamine,Urine NEGATIVE (NEGATIVE); Barbiturate,Urine NEGATIVE (NEGATIVE); Benzodiazepine,Urine NEGATIVE (NEGATIVE); Cocaine,Urine NEGATIVE (NEGATIVE); Methadone,Urine NEGATIVE (NEGATIVE); Opiate,Urine NEGATIVE (NEGATIVE); PCP,Urine NEGATIVE (NEGATIVE); THC,Urine NEGATIVE (NEGATIVE)
[2018-10-05] MEDS ORDERED: CORTISONE 1% CREAM TP PRN (11:42)
[2018-10-05] MEDS ORDERED: Mylicon 80MG PO PRN (11:42)
[2018-10-05] MEDS ORDERED: Dermoplast Spray TP PRN (11:42)
[2018-10-05] MEDS ORDERED: LANSINOH 40 GM TOP PRN (11:42)
[2018-10-05] MEDS ORDERED: Anucort-HC SUPPOSITORY PR PRN (11:42)
[2018-10-05] MEDS ORDERED: Dulcolax 10 MG SUPP PR PRN (11:42)
[2018-10-05] MEDS ORDERED: M-M-R II Vaccine With Diluent SQ ONE (15:00)
[2018-10-05] MEDS: MOTRIN 400 MG PO PRN ×2 (16:52→23:26)
[2018-10-05] MEDS: Colace 100 MG PO SCH (20:54)
[2018-10-06] MEDS: MOTRIN 400 MG PO PRN ×2 (05:41→13:36)
[2018-10-06 05:49] LABS: Granulocyte Absolute (ANC) 7.29 (1.4-6.9); Hemoglobin 11.7 gm/dl (12.0-16.0); Mean Cell Volume 91.8 fl (78-100); Mean Corpuscular Hemoglobin 29.8 pg (26-32); Mean Corpuscular Hgb Concent. 32.5 g/dl (32-36); Mean Platelet Volume 9.5 fl (6-9.5); Platelet Count 166 K/mm3 (150-450); Red Blood Count 3.92 M/mm3 (4.1-5.4); Red Cell Distribution Width 13.5 % (11.5-14.0); White Blood Count 11.4 K/mm3 (4.0-10.5)
[2018-10-06 07:21] LABS: BAND 7 % (0.0-2.0); Basophil 2 % (0.0-1.0); Lymphocytes 20 % (24-44); Monocyte 11 % (0.0-12.0); Neutrophils 60 % (36.0-66.0); Total Cells Counted 100
[2018-10-06 07:22] LABS: Platelet Estimate NORMAL (NORMAL)
[2018-10-06] MEDS: NORCO 5/325 MG PO PRN ×3 (08:00→20:11)
[2018-10-06 08:43] LABS: Hepatitis B Sur Ag Screen Non Reactive (Non Reactive)
[2018-10-06] MEDS: Colace 100 MG PO SCH ×2 (10:12→20:11)
[2018-10-06] MEDS: FERREX 150 PO SCH (10:12)
[2018-10-06 10:47] LABS: Immune Status: Equivocal
[2018-10-06 17:11] LABS: RPR Screen Non Reactive (Non Reactive)
[2018-10-07] MEDS: MOTRIN 400 MG PO PRN ×2 (00:14→08:32)
[2018-10-07] MEDS: NORCO 5/325 MG PO PRN (05:02)
[2018-10-07] MEDS ORDERED: NORCO 7.5/325 MG TAB PO PRN (09:37)
--- NOTE | 2018-10-07 10:00 | PCM.DS ---
Discharge Summary Date of Admission: 10/05/18 08:55 Admitting Physician: MINA MERRITT Primary Care Provider: MINA MERRITT Allergies Allergies No Known Drug Allergies Allergy (Verified 09/21/18 00:24) Hospital Summary - Hospital Course Hospital Course: Pt came in as at 39w 4d and had viable female infant via (for full details, see Dr. Merritt' note). She is having some trouble controlling the pain from abdominal cramping; is on scheduled motrin but the norco is insufficient. Up out of bed OK. Lochia is light. Will be discharged to home on norco 7.5/ 325 and motrin 800mg. F/u with Dr. Merritt next week. - Vitals & Intake/Output Vital Signs: Vital Signs Temperature 97.7 F 10/07/18 02:00 Pulse Rate 66 10/07/18 02:00 Respiratory Rate 20 10/07/18 02:00 Blood Pressure 126/79 10/07/18 02:00 O2 Sat by Pulse Oximetry 100 10/05/18 07:30 Intake & Output: Intake & Output 10/04/18 10/05/18 10/06/18 10/07/18 11:59 11:59 11:59 11:59 Intake Total 3450 2100 Output Total 7 Balance 3450 2093 Weight 200 kg - Lab Result Diagrams: 10/06/18 05:36 Lab Results-Last 24 Hrs: Lab Results-Last 24 Hours 10/05/18 Range/Units 05:51 RPR w/Rflx to Titer Non Reactive (Non Reactive) Rubella Immune Status Equivocal H Rubella IgG Antibody 5 IU/mL - Procedures and Test Procedures and Tests throughout Hospitalization: Therapy Orders & Screens 10/05/18 10:27 Standby STAT Comment: Diagnosis: LABOR Discharge Exam General Appearance: no apparent distress, alert Neurologic Exam: oriented x 3, cooperative Eye Exam: eyes nml inspection Ears, Nose, Throat Exam: moist mucous membranes Respiratory Exam: normal breath sounds, lungs clear, No crackles/rales, No rhonchi, No wheezing Cardiovascular Exam: regular rate/rhythm, normal heart sounds, No murmur Gastrointestinal/Abdomen Exam: soft, other (fundus firm under umbilicus), No tenderness, No distention Extremity Exam: normal inspection, No pedal edema, No swelling Skin Exam: normal color, warm, dry, No rash Final Diagnosis/Problem List - Final Discharge Diagnosis/Problem (1) Vaginal delivery Current Visit: No Status: Acute Assessment & Plan: Sending pt home on norco 7.5/325 #30 no rf and motrin 800mg #35. F/u with Dr. Merritt next week. Code(s): O80 - ENCOUNTER FOR FULL-TERM UNCOMPLICATED DELIVERY - Discharge Disposition: Home, Self-Care Condition: Good Prescriptions: New Ibuprofen 800 mg PO TID PRN #35 tablet PRN Reason: Pain Hydrocodone Bit/Acetaminophen [[place] 7.5-325 Tablet] 1 each PO Q4H PRN #35 tablet MDD 6 PRN Reason: Severe Pain Continue Vit/Iron Fum/Folic AC [ Tablet] 1 tab PO DAILY Follow up with: MINA MERRITT MD [Primary Care Provider] - 1 Week
[2018-10-07] MEDS: Colace 100 MG PO SCH (10:08)
[2018-10-07] MEDS: FERREX 150 PO SCH (10:08)
[2018-10-07 13:44] VITALS: BP 118/79; PULSE 65
== END 2018-10-07 11:25 | disposition home or self-care (01) | DRG 807 ==
LOC: OB 05:03 → OBSVTOIN 08:55
PROVIDERS: ADMIT Family Medicine; ATTEND Family Medicine
PROC: 10E0XZZ Delivery of Products of Conception, External Approach (ICD-10-PCS; principal; 2018-10-05)
PROC: 0KQM0ZZ Repair Perineum Muscle, Open Approach (ICD-10-PCS; 2018-10-05)
DX: O70.1 Second degree perineal laceration during delivery (principal); Z37.0 Single live birth; Z3A.39 39 weeks gestation of pregnancy
CPT/HCPCS: 36415; 80307; 81003; 85025; 86592; 86593; 86701; 86702; 86762; 86780; 87340; 87389; 90707; 94799; 96372; G0378; J2590; J2795; A9270-GY

== ENCOUNTER 2020-04-08 23:23 | Observation (INO) | payer OTHER ==
[2020-04-09 00:09] LABS: Appearance CLOUDY (CLEAR); Bacteria RARE /HPF (NEGATIVE); Bilirubin NEGATIVE (NEGATIVE); Blood NEGATIVE Ery/ul (0-5); Epithelial Cells FEW /HPF (FEW); Glucose NEGATIVE (NEGATIVE); Ketones NEGATIVE (NEGATIVE); Leukocyte Esterase LARGE (NEGATIVE); Mucus SLIGHT /HPF (NEGATIVE); Nitrite NEGATIVE (NEGATIVE); Protein,Urine Dip NEGATIVE (Negative); Specific Gravity 1.021 (1.005-1.025); Urobilinogen 4 mg/dL (0-1)
[2020-04-09 00:13] VITALS: O2SAT 98
[2020-04-09 00:14] LABS: Amphetamine,Urine NEGATIVE (NEGATIVE); Barbiturate,Urine NEGATIVE (NEGATIVE); Benzodiazepine,Urine NEGATIVE (NEGATIVE); Cocaine,Urine NEGATIVE (NEGATIVE); Methadone,Urine NEGATIVE (NEGATIVE); Opiate,Urine NEGATIVE (NEGATIVE); PCP,Urine NEGATIVE (NEGATIVE); THC,Urine NEGATIVE (NEGATIVE)
[2020-04-09] MEDS ORDERED: KEFLEX 500 MG PO ONE (00:26)
[2020-04-09] MEDS ORDERED: KEFLEX 500 MG ONE (00:30)
[2020-04-09 01:18] VITALS: BP 113/68; PULSE 95
== END 2020-04-09 01:04 | disposition home or self-care (01) ==
LOC: OB 23:23
PROVIDERS: ADMIT Family Medicine; ATTEND Family Medicine
DX: Z34.82 Encounter for supervision of other normal pregnancy, second trimester (principal); Z3A.24 24 weeks gestation of pregnancy
CPT/HCPCS: 80307; 81001; 87086; G0378; A9270-GY

== ENCOUNTER 2020-04-30 22:28 | Observation (INO) | payer OTHER ==
[2020-04-30] MEDS ORDERED: TYLENOL EXTRA STRENGTH 500 MG PO PRN (23:09)
[2020-04-30 23:24] LABS: Appearance CLOUDY (CLEAR); Bacteria MODERATE /HPF (NEGATIVE); Bilirubin NEGATIVE (NEGATIVE); Blood SMALL Ery/ul (0-5); Epithelial Cells MANY /HPF (FEW); Glucose NEGATIVE (NEGATIVE); Ketones NEGATIVE (NEGATIVE); Leukocyte Esterase LARGE (NEGATIVE); Mucus SLIGHT /HPF (NEGATIVE); Nitrite NEGATIVE (NEGATIVE); Protein,Urine Dip 30 (Negative); Specific Gravity 1.024 (1.005-1.025); Urobilinogen 4 mg/dL (0-1); WBC 51-100 /HPF (0-5)
[2020-04-30 23:35] LABS: Amphetamine,Urine NEGATIVE (NEGATIVE); Barbiturate,Urine NEGATIVE (NEGATIVE); Benzodiazepine,Urine NEGATIVE (NEGATIVE); Cocaine,Urine NEGATIVE (NEGATIVE); Methadone,Urine NEGATIVE (NEGATIVE); Opiate,Urine NEGATIVE (NEGATIVE); PCP,Urine NEGATIVE (NEGATIVE); THC,Urine NEGATIVE (NEGATIVE)
[2020-04-30] MEDS ORDERED: TYLENOL EXTRA STRENGTH 500 MG ONE (23:47)
[2020-05-01 03:00] VITALS: BP 109/63; PULSE 74; O2SAT 98
--- NOTE | 2020-05-01 07:45 | XRAY ---
Indication: Pain and swelling following fall. Comparison: None 3 view left knee obtained. No bony, articular, or soft tissue abnormalities.
== END 2020-05-01 03:15 | disposition home or self-care (01) ==
LOC: OB 22:28
PROVIDERS: ADMIT Family Medicine; ATTEND Family Medicine
DX: O26.893 Other specified pregnancy related conditions, third trimester (principal); Z3A.28 28 weeks gestation of pregnancy; M25.562 Pain in left knee; W10.9XXA Fall (on) (from) unspecified stairs and steps, initial encounter
CPT/HCPCS: 73562; 80307; 81001; 87086; G0378; A9270-GY

== ENCOUNTER 2020-05-17 22:29 | Observation (INO) | payer OTHER ==
[2020-05-17 23:21] LABS: Appearance SLIGHTLY CLOUDY (CLEAR); Bacteria RARE /HPF (NEGATIVE); Bilirubin NEGATIVE (NEGATIVE); Blood NEGATIVE Ery/ul (0-5); Epithelial Cells RARE /HPF (FEW); Glucose NEGATIVE (NEGATIVE); Ketones SMALL (NEGATIVE); Leukocyte Esterase MODERATE (NEGATIVE); Mucus SLIGHT /HPF (NEGATIVE); Nitrite NEGATIVE (NEGATIVE); Protein,Urine Dip NEGATIVE (Negative); RBC 0-2 /HPF (0-2); Urobilinogen 4 mg/dL (0-1)
[2020-05-17 23:40] LABS: Amphetamine,Urine NEGATIVE (NEGATIVE); Barbiturate,Urine NEGATIVE (NEGATIVE); Benzodiazepine,Urine NEGATIVE (NEGATIVE); Cocaine,Urine NEGATIVE (NEGATIVE); Methadone,Urine NEGATIVE (NEGATIVE); Opiate,Urine NEGATIVE (NEGATIVE); PCP,Urine NEGATIVE (NEGATIVE); THC,Urine NEGATIVE (NEGATIVE)
[2020-05-18] MEDS ORDERED: Lactated Ringers 1,000 ML IV ONE ×2 (00:04→00:20)
[2020-05-18 00:53] VITALS: BP 121/77; PULSE 88; O2SAT 97
[2020-05-18] MEDS ORDERED: PRENATAL VIT PO SCH (10:00)
[2020-05-18] MEDS ORDERED: NON-FORMULARY ITEM (Famotidine [Pepcid] 40 MG) PO SCH (10:00)
[2020-05-18] MEDS ORDERED: IRON FUM PO SCH (10:00)
[2020-05-18] MEDS ORDERED: FOLIC AC PO SCH (10:00)
== END 2020-05-18 01:30 | disposition home or self-care (01) ==
LOC: OB 22:29
PROVIDERS: ADMIT Family Medicine; ATTEND Family Medicine
DX: Z34.83 Encounter for supervision of other normal pregnancy, third trimester (principal)
CPT/HCPCS: 59025; 80307; 81001; 87086; G0378

== ENCOUNTER 2020-05-22 18:34 | Observation (INO) | payer OTHER ==
[2020-05-22 20:42] VITALS: BP 111/70; PULSE 77; O2SAT 100
== END 2020-05-22 21:00 | disposition home or self-care (01) ==
LOC: OB 18:34
PROVIDERS: ADMIT Family Medicine; ATTEND Family Medicine
DX: Z34.83 Encounter for supervision of other normal pregnancy, third trimester (principal); Z3A.31 31 weeks gestation of pregnancy
CPT/HCPCS: 59025; G0378

== ENCOUNTER 2020-07-19 14:10 | Inpatient (IN) | payer OTHER ==
[2020-07-19] MEDS ORDERED: Zofran 4 MG/2 ML VIAL IV PRN (14:37)
[2020-07-19] MEDS ORDERED: XYLOCAINE 1% HCL 20 ML MDV IJ PRN (14:37)
[2020-07-19] MEDS ORDERED: Ephedrine Sulfate 50 MG/ML IV PRN (14:55)
[2020-07-19] MEDS ORDERED: Lactated Ringers 1,000 ML IV ONE (14:55)
[2020-07-19] MEDS ORDERED: OB EPIDURAL NAROPIN/SUFENTANIL IN NACL EPIDURAL PRN (14:55)
[2020-07-19] MEDS ORDERED: PITOCIN 30 UNITS/ LR 500 ML 30 UNITS/500 ML IV.SOLN. IV SCH ×2 (15:00→22:00)
[2020-07-19 15:34] LABS: Absolute Neutrophil Ct (ANC) 8.15 (1.4-6.9); BASOPHIL % 0.2 % (0.0-0.4); Basophil (Absolute #) 0.02 (0-0.4); Eosinophil (Absolute #) 0.11 (0-0.5); Hematocrit 46.3 % (35-47); Hemoglobin 14.5 gm/dl (12.0-16.0); Lymphocyte (Absolute #) 1.84 (1.0-4.6); Lymphocytes % 16.6 % (24.0-44.0); Mean Cell Volume 90.6 fl (78-100); Mean Corpuscular Hemoglobin 28.4 pg (26-32); Mean Corpuscular Hgb Concent. 31.3 g/dl (32-36); Mean Platelet Volume 10.9 fl (7.5-11.0); Monocyte (Absolute #) 0.94 (0.0-1.3); Monocytes % 8.5 % (0.0-12.0); Neutrophil % 73.7 % (36.0-66.0); Platelet Count 183 K/mm3 (150-450); Red Blood Count 5.11 M/mm3 (4.1-5.4); Red Cell Distribution Width 14.9 % (11.5-14.0); White Blood Count 11.1 K/mm3 (4.0-10.5)
[2020-07-19] MEDS: Lactated Ringers 1,000 ML IV SCH ×2 (16:30→21:38)
[2020-07-19 20:22] LABS: Amphetamine,Urine NEGATIVE (NEGATIVE); Barbiturate,Urine NEGATIVE (NEGATIVE); Benzodiazepine,Urine NEGATIVE (NEGATIVE); Cocaine,Urine NEGATIVE (NEGATIVE); Methadone,Urine NEGATIVE (NEGATIVE); Opiate,Urine NEGATIVE (NEGATIVE); PCP,Urine NEGATIVE (NEGATIVE); THC,Urine NEGATIVE (NEGATIVE)
[2020-07-19] MEDS ORDERED: BRETHINE 1 MG/ML SQ PRN (21:39)
[2020-07-20] MEDS ORDERED: LANSINOH 40 GM TOP PRN (00:16)
[2020-07-20] MEDS ORDERED: Ambien 10 MG PO PRN (00:16)
[2020-07-20] MEDS ORDERED: CORTISONE 1% CREAM TP PRN (00:16)
[2020-07-20] MEDS ORDERED: Mylicon 80MG PO PRN (00:16)
[2020-07-20] MEDS ORDERED: Anucort-HC SUPPOSITORY PR PRN (00:16)
[2020-07-20] MEDS ORDERED: Dermoplast Spray TP PRN (00:16)
[2020-07-20] MEDS ORDERED: Dulcolax 10 MG SUPP PR PRN (00:16)
[2020-07-20] MEDS ORDERED: TUCKS TP PRN (00:16)
[2020-07-20] MEDS ORDERED: Restoril 15 MG PO PRN (00:16)
[2020-07-20] MEDS: MOTRIN 400 MG PO PRN ×3 (03:27→17:47)
[2020-07-20 05:51] LABS: Absolute Neutrophil Ct (ANC) 10.61 (1.4-6.9); BASOPHIL % 0.1 % (0.0-0.4); Basophil (Absolute #) 0.02 (0-0.4); Eosinophil % 0.4 % (0.00-5.0); Eosinophil (Absolute #) 0.05 (0-0.5); Hematocrit 38.7 % (35-47); Hemoglobin 12.4 gm/dl (12.0-16.0); Lymphocyte (Absolute #) 2.32 (1.0-4.6); Lymphocytes % 16.3 % (24.0-44.0); Mean Cell Volume 88.4 fl (78-100); Mean Corpuscular Hemoglobin 28.3 pg (26-32); Mean Platelet Volume 10.5 fl (7.5-11.0); Monocytes % 8.5 % (0.0-12.0); Neutrophil % 74.7 % (36.0-66.0); Platelet Count 198 K/mm3 (150-450); Red Blood Count 4.38 M/mm3 (4.1-5.4); Red Cell Distribution Width 14.7 % (11.5-14.0); White Blood Count 14.2 K/mm3 (4.0-10.5)
[2020-07-20] MEDS: TYLENOL EXTRA STRENGTH 500 MG PO PRN ×2 (06:29→15:54)
[2020-07-20] MEDS: NORCO 5/325 MG PO PRN ×3 (08:04→20:48)
[2020-07-20] MEDS: Colace 100 MG PO SCH ×2 (11:28→20:48)
[2020-07-20] MEDS: FERREX 150 PO SCH (11:28)
[2020-07-21 03:30] VITALS: O2SAT 100
[2020-07-21 05:43] LABS: Absolute Neutrophil Ct (ANC) 6.92 (1.4-6.9); BASOPHIL % 0.2 % (0.0-0.4); Basophil (Absolute #) 0.02 (0-0.4); Eosinophil % 1.9 % (0.00-5.0); Eosinophil (Absolute #) 0.21 (0-0.5); Hemoglobin 11.5 gm/dl (12.0-16.0); Lymphocyte (Absolute #) 3.11 (1.0-4.6); Lymphocytes % 28.1 % (24.0-44.0); Mean Cell Volume 89.8 fl (78-100); Mean Corpuscular Hemoglobin 27.9 pg (26-32); Mean Corpuscular Hgb Concent. 31.1 g/dl (32-36); Mean Platelet Volume 10.2 fl (7.5-11.0); Monocyte (Absolute #) 0.82 (0.0-1.3); Monocytes % 7.4 % (0.0-12.0); Neutrophil % 62.4 % (36.0-66.0); Platelet Count 207 K/mm3 (150-450); Red Blood Count 4.12 M/mm3 (4.1-5.4); Red Cell Distribution Width 15.1 % (11.5-14.0); White Blood Count 11.1 K/mm3 (4.0-10.5)
[2020-07-21] MEDS: MOTRIN 400 MG PO PRN (06:12)
--- NOTE | 2020-07-21 08:08 | PCM.DS ---
Discharge Summary Date of Admission: 07/19/20 14:10 Admitting Physician: MINA MERRITT Primary Care Provider: MINA MERRITT Allergies Allergies No Known Drug Allergies Allergy (Verified 07/19/20 14:36) Hospital Summary - Hospital Course Hospital Course: patient had a term with no complications, 2nd degree perineal laceration repair. pain is controlled. mild lochia and taking regular po with no problems. bottle feeding her baby boy - Vitals & Intake/Output Vital Signs: Vital Signs Temperature 97.4 F 07/21/20 02:00 Pulse Rate 59 L 07/21/20 02:00 Respiratory Rate 18 07/21/20 02:00 Blood Pressure 129/79 07/21/20 02:00 O2 Sat by Pulse Oximetry 100 07/21/20 02:00 Intake & Output: Intake & Output 07/18/20 07/19/20 07/20/20 07/21/20 10:59 10:59 11:59 11:59 Intake Total 1640 Output Total Balance 1640 Weight - Lab Result Diagrams: 07/21/20 05:10 Lab Results-Last 24 Hrs: Lab Results-Last 24 Hours 07/21/20 Range/Units 05:10 WBC 11.1 H (4.0-10.5) K/mm3 RBC 4.12 (4.1-5.4) M/mm3 Hgb 11.5 L (12.0-16.0) gm/dl Hct 37.0 (35-47) % MCV 89.8 (78-100) fl MCH 27.9 (26-32) pg MCHC 31.1 L (32-36) g/dl RDW 15.1 H (11.5-14.0) % Plt Count 207 (150-450) K/mm3 MPV 10.2 (7.5-11.0) fl Gran % 62.4 (36.0-66.0) % Eos # (Auto) 0.21 (0-0.5) Absolute Lymphs (auto) 3.11 (1.0-4.6) Absolute Monos (auto) 0.82 (0.0-1.3) Lymphocytes % 28.1 (24.0-44.0) % Monocytes % 7.4 (0.0-12.0) % Eosinophils % 1.9 (0.00-5.0) % Basophils % 0.2 (0.0-0.4) % Absolute Granulocytes 6.92 H (1.4-6.9) Basophils # 0.02 (0-0.4) Micro Results-Entire Visit: Microbiology 07/19/20 19:27 Urine Culture - Final Catherized NO GROWTH - Procedures and Test Procedures and Tests throughout Hospitalization: Therapy Orders & Screens 07/19/20 22:30 Standby STAT Comment: Diagnosis: Term IUP Discharge Exam General Appearance: no apparent distress, alert, obese Respiratory Exam: normal breath sounds, lungs clear, No respiratory distress Cardiovascular Exam: regular rate/rhythm, normal heart sounds Gastrointestinal/Abdomen Exam: soft, No tenderness, No mass Skin Exam: normal color, warm, dry Final Diagnosis/Problem List - Final Discharge Diagnosis/Problem (1) Second degree perineal laceration during delivery Current Visit: Yes Status: Acute Code(s): O70.1 - SECOND DEGREE PERINEAL LACERATION DURING DELIVERY (2) Vaginal delivery Current Visit: No Status: Acute Code(s): O80 - ENCOUNTER FOR FULL-TERM UNCOMPLICATED DELIVERY - Discharge Disposition: Home, Self-Care Condition: Stable Prescriptions: New Docusate Sodium 100 mg [Colace 100 MG] 100 mg PO BID #60 capsule Hydrocodone/Acetaminophen [Hydrocodone-Acetamin 5-325 mg ] 1 tab PO Q6HPRN PRN 5 Days #20 tablet MDD 4 PRN Reason: Pain Ibuprofen 600 mg PO Q6H PRN PRN #30 tablet PRN Reason: Pain Continue Famotidine [Pepcid] 40 mg PO DAILY Discontinued Vit/Iron Fum/Folic AC [ Tablet] 1 tab PO DAILY Follow up with: MINA MERRITT MD [Primary Care Provider] - LINDA BLANDON DO [ACTIVE STAFF] - (tubal consult)
[2020-07-21] MEDS: Colace 100 MG PO SCH (09:59)
[2020-07-21] MEDS: FERREX 150 PO SCH (09:59)
[2020-07-21] MEDS: NORCO 5/325 MG PO PRN (09:59)
[2020-07-21 16:57] VITALS: BP 132/97; PULSE 78
== END 2020-07-21 16:45 | disposition home or self-care (01) | DRG 807 ==
LOC: OB 14:10 → OBSVTOIN 14:10
PROVIDERS: ADMIT Family Medicine; ATTEND Family Medicine
PROC: 10E0XZZ Delivery of Products of Conception, External Approach (ICD-10-PCS; principal; 2020-07-19)
PROC: 0KQM0ZZ Repair Perineum Muscle, Open Approach (ICD-10-PCS; 2020-07-19)
DX: O70.1 Second degree perineal laceration during delivery (principal); Z37.0 Single live birth; Z3A.39 39 weeks gestation of pregnancy
CPT/HCPCS: 36415; 80307; 81003; 85025; 87086; 87340; 87389; 94799; G0378; J2590; J2795; A9270-GY

== ENCOUNTER 2022-07-02 07:01 | Observation (INO) | payer OTHER ==
[2022-07-02 09:32] VITALS: BP 120/81; PULSE 81; O2SAT 100
== END 2022-07-02 10:05 | disposition home or self-care (01) ==
LOC: OB 07:01
PROVIDERS: ADMIT Family Medicine; ATTEND Family Medicine
DX: Z34.83 Encounter for supervision of other normal pregnancy, third trimester (principal); Z3A.38 38 weeks gestation of pregnancy
CPT/HCPCS: G0378

== ENCOUNTER 2022-07-09 03:05 | Inpatient (IN) | payer OTHER ==
[2022-07-09 05:53] LABS: Absolute Neutrophil Ct (ANC) 5.77 x10^3/uL (1.4-6.9); BASOPHIL % 0.5 % (0.0-0.4); Basophil (Absolute #) 0.05 x10^3/uL (0-0.4); Eosinophil % 1.3 % (0.00-5.0); Eosinophil (Absolute #) 0.13 x10^3/uL (0-0.5); Hematocrit 41.3 % (35-47); Hemoglobin 13.4 g/dL (12.0-16.0); IMMATURE GRAN # 0.08 x10^3u/L (0.00-0.03); IMMATURE GRAN % 0.8 % (0.00-0.4); Lymphocyte (Absolute #) 3.17 x10^3/uL (1.0-4.6); Lymphocytes % 31.6 % (24.0-44.0); Mean Cell Volume 86.8 fL (78-100); Mean Corpuscular Hemoglobin 28.2 pg (26-32); Mean Corpuscular Hgb Concent. 32.4 g/dL (32-36); Mean Platelet Volume 9.1 fL (7.5-11.0); Monocyte (Absolute #) 0.82 x10^3/uL (0.0-1.3); Monocytes % 8.2 % (0.0-12.0); Neutrophil % 57.6 % (36.0-66.0); Platelet Count 245 x10^3/uL (150-450); Red Blood Count 4.76 x10^6/uL (4.1-5.4); Red Cell Distribution Width 13.1 % (11.5-14.0)
[2022-07-09] MEDS ORDERED: PITOCIN 30 UNITS/ LR 500 ML 30 UNITS/500 ML PLAST..BAG IV SCH ×2 (06:00→14:00)
[2022-07-09] MEDS ORDERED: Zofran 4 MG/2 ML VIAL IV PRN (06:00)
[2022-07-09] MEDS ORDERED: BRETHINE 1 MG/ML SQ PRN (06:00)
[2022-07-09] MEDS: Lactated Ringers 1,000 ML IV SCH ×2 (06:09→12:11)
[2022-07-09 06:10] LABS: Appearance Turbid (Clear); Bacteria Many /HPF (None Seen); Bilirubin Negative (Negative); Blood Small (Negative); Epithelial Cells Many /HPF (None Seen); Glucose, Urine Negative (Negative); Ketones 15 (Negative); Leukocyte Esterase Large (Negative); Nitrite Negative (Negative); Ph 6.5 (4.6-8.0); Protein,Urine Dip Trace (Negative); RBC 0-2 /HPF (0-5); WBC >100 /HPF (0-5)
[2022-07-09 06:16] LABS: ADD URINE CULTURE? YES (NO)
[2022-07-09 06:26] LABS: Amphetamine,Urine NEGATIVE (NEGATIVE); Barbiturate,Urine NEGATIVE (NEGATIVE); Benzodiazepine,Urine NEGATIVE (NEGATIVE); Cocaine,Urine NEGATIVE (NEGATIVE); Methadone,Urine NEGATIVE (NEGATIVE); Opiate,Urine NEGATIVE (NEGATIVE); PCP,Urine NEGATIVE (NEGATIVE); THC,Urine NEGATIVE (NEGATIVE)
[2022-07-09 06:45] LABS: ABO TYPING A; Antibody Screen NEGATIVE (NEGATIVE); RH TYPING POSITIVE
[2022-07-09] MEDS ORDERED: Lactated Ringers 1,000 ML IV ONE (07:36)
[2022-07-09] MEDS ORDERED: Ephedrine Sulfate 50 MG/ML IV PRN (07:36)
[2022-07-09] MEDS ORDERED: FENTANYL 2 MCG-BUPIV 0.125%-NS 250 ML Epidur 250 ML EPIDURAL SCH (07:45)
[2022-07-09] MEDS ORDERED: XYLOCAINE 1% HCL 20 ML MDV IJ PRN (09:00)
[2022-07-09] MEDS ORDERED: Dermoplast Spray TP PRN (10:24)
[2022-07-09] MEDS ORDERED: TUCKS TP PRN (10:24)
[2022-07-09] MEDS ORDERED: CORTISONE 1% CREAM TP PRN (10:24)
[2022-07-09] MEDS ORDERED: Ambien 10 MG PO PRN (10:24)
[2022-07-09] MEDS ORDERED: Dulcolax 10 MG SUPP PR PRN (10:24)
[2022-07-09] MEDS ORDERED: Mylicon 80MG PO PRN (10:24)
[2022-07-09] MEDS ORDERED: Restoril 15 MG PO PRN (10:24)
[2022-07-09] MEDS ORDERED: Anucort-HC SUPPOSITORY PR PRN (10:24)
[2022-07-09 12:14] LABS: Appearance Clear (Clear); Bilirubin Negative (Negative); Blood NHT (Negative); Glucose, Urine Negative (Negative); Ketones 80 (Negative); Leukocyte Esterase Trace (Negative); Nitrite Negative (Negative); Ph 7.5 (4.6-8.0); Protein,Urine Dip Trace (Negative); Specific Gravity 1.025 (1.005-1.030)
[2022-07-09 12:16] LABS: Bacteria None Seen /HPF (None Seen); Epithelial Cells Rare /HPF (None Seen); Hyaline Casts NONE SEEN /LPF (0-2); WBC 0-2 /HPF (0-5)
[2022-07-09 12:18] LABS: ADD URINE CULTURE? YES (NO)
[2022-07-09] MEDS ORDERED: Adacel Vial IM ONE (14:00)
[2022-07-09] MEDS: TYLENOL EXTRA STRENGTH 500 MG PO PRN ×2 (17:50→23:54)
[2022-07-09] MEDS: MOTRIN 400 MG PO PRN (20:23)
[2022-07-09] MEDS: Docusate Sodium 100 MG PO SCH (21:43)
[2022-07-10] MEDS: MOTRIN 400 MG PO PRN ×3 (04:11→15:58)
[2022-07-10 05:07] LABS: Absolute Neutrophil Ct (ANC) 7.41 x10^3/uL (1.4-6.9); BASOPHIL % 0.5 % (0.0-0.4); Basophil (Absolute #) 0.05 x10^3/uL (0-0.4); Eosinophil % 1.3 % (0.00-5.0); Eosinophil (Absolute #) 0.14 x10^3/uL (0-0.5); Hematocrit 38.5 % (35-47); Hemoglobin 12.3 g/dL (12.0-16.0); IMMATURE GRAN # 0.08 x10^3u/L (0.00-0.03); IMMATURE GRAN % 0.7 % (0.00-0.4); Lymphocytes % 21.8 % (24.0-44.0); Mean Cell Volume 87.7 fL (78-100); Mean Corpuscular Hgb Concent. 31.9 g/dL (32-36); Mean Platelet Volume 9.4 fL (7.5-11.0); Monocyte (Absolute #) 0.92 x10^3/uL (0.0-1.3); Monocytes % 8.4 % (0.0-12.0); Neutrophil % 67.3 % (36.0-66.0); Platelet Count 213 x10^3/uL (150-450); Red Blood Count 4.39 x10^6/uL (4.1-5.4); Red Cell Distribution Width 13.8 % (11.5-14.0)
[2022-07-10] MEDS: NORCO 5/325 MG PO PRN ×2 (08:03→12:07)
[2022-07-10] MEDS: Docusate Sodium 100 MG PO SCH (09:03)
[2022-07-10] MEDS ORDERED: FERREX 150 PO SCH (10:00)
--- NOTE | 2022-07-10 10:31 | PCM.DS ---
Discharge Summary Date of Admission: 07/09/22 09:12 Admitting Physician: MINA MERRITT Primary Care Provider: MINA MERRITT Allergies Allergies No Known Drug Allergies Allergy (Verified 07/09/22 05:18) Hospital Summary - Hospital Course Hospital Course: 26 yo electively induced at 39wks, uncomplicated with 2nd degree perineal laceration repair. bottle feeding, no problems. - Vitals & Intake/Output Vital Signs: Vital Signs Temperature 97.4 F 07/10/22 08:00 Pulse Rate 61 07/10/22 08:00 Respiratory Rate 18 07/10/22 08:00 Blood Pressure 125/86 07/10/22 08:00 O2 Sat by Pulse Oximetry 99 07/10/22 08:00 Intake & Output: Intake & Output 07/07/22 07/08/22 07/09/22 07/10/22 11:59 11:59 11:59 11:59 Intake Total 3000 2000 Output Total 1600 300 Balance 1400 1700 Weight 100.244 kg - Lab Result Diagrams: 07/10/22 04:45 Lab Results-Last 24 Hrs: Lab Results-Last 24 Hours 07/09/22 07/10/22 Range/Units 11:47 04:45 WBC 11.0 H (4.0-10.5) x10^3/uL RBC 4.39 (4.1-5.4) x10^6/uL Hgb 12.3 (12.0-16.0) g/dL Hct 38.5 (35-47) % MCV 87.7 (78-100) fL MCH 28.0 (26-32) pg MCHC 31.9 L (32-36) g/dL RDW 13.8 (11.5-14.0) % Plt Count 213 (150-450) x10^3/uL MPV 9.4 (7.5-11.0) fL Gran % 67.3 H (36.0-66.0) % Immature Gran % (Auto) 0.7 H (0.00-0.4) % Nucleat RBC Rel Count 0.0 (0.00-0.1) % Eos # (Auto) 0.14 (0-0.5) x10^3/uL Immature Gran # (Auto) 0.08 H (0.00-0.03) x10^3u/L Absolute Lymphs (auto) 2.40 (1.0-4.6) x10^3/uL Absolute Monos (auto) 0.92 (0.0-1.3) x10^3/uL Absolute Nucleated RBC 0.00 (0.00-0.01) x10^3u/L Lymphocytes % 21.8 L (24.0-44.0) % Monocytes % 8.4 (0.0-12.0) % Eosinophils % 1.3 (0.00-5.0) % Basophils % 0.5 (0.0-0.4) % Absolute Granulocytes 7.41 H (1.4-6.9) x10^3/uL Basophils # 0.05 (0-0.4) x10^3/uL Urine Color Dark Yellow A (Yellow) Urine Appearance Clear (Clear) Urine pH 7.5 (4.6-8.0) Ur Specific [place] 1.025 (1.005-1.030) Urine Protein Trace A (Negative) Urine Glucose (UA) Negative (Negative) mg/dL Urine Ketones 80 A (Negative) Urine Blood NHT (Negative) Urine Nitrite Negative (Negative) Urine Bilirubin Negative (Negative) Urine Urobilinogen 1.0 A (0.2) mg/dL Ur Leukocyte Esterase Trace A (Negative) U Hyaline Cast (Auto) NONE SEEN (0-2) /LPF Urine Microscopic RBC 11-20 A (0-5) /HPF Urine Microscopic WBC 0-2 (0-5) /HPF Ur Epithelial Cells Rare (None Seen) /HPF Urine Bacteria None Seen (None Seen) /HPF Urine Culture Reflexed YES (NO) Micro Results-Entire Visit: Microbiology 07/09/22 11:47 Urine Culture - Preliminary Clean Catch Midstream NO GROWTH TO DATE 07/09/22 05:45 Urine Culture - Final Clean Catch Midstream <10K NORMAL SKIN PAULINE PROBABLE SKIN CONTAMINANT - Procedures and Test Procedures and Tests throughout Hospitalization: Therapy Orders & Screens 07/09/22 14:23 Standby ROUTINE Comment: Discharge Exam General Appearance: no apparent distress Neurologic Exam: alert, oriented x 3 Respiratory Exam: normal breath sounds, lungs clear, No respiratory distress Cardiovascular Exam: regular rate/rhythm, normal heart sounds Gastrointestinal/Abdomen Exam: soft Extremity Exam: normal inspection, normal range of motion Skin Exam: normal color, warm, dry Final Diagnosis/Problem List - Final Discharge Diagnosis/Problem (1) Vaginal delivery Current Visit: No Status: Acute Code(s): O80 - ENCOUNTER FOR FULL-TERM UNCOMPLICATED DELIVERY (2) Second degree perineal laceration during delivery Current Visit: Yes Status: Acute Code(s): O70.1 - SECOND DEGREE PERINEAL LACERATION DURING DELIVERY - Discharge Disposition: Home, Self-Care Condition: Stable Prescriptions: New Hydrocodone/Acetaminophen [Hydrocodone-Acetamin 7.5-325] 1 each PO Q6H PRN PRN #12 tablet MDD 4 PRN Reason: Pain Ibuprofen 600 mg PO Q6H PRN PRN #30 tablet MDD 4 PRN Reason: Pain Discontinued Vit No.179/Iron/Folic [ Tablet] 1 each PO DAILY Follow up with: MINA MERRITT MD [Primary Care Provider] -
[2022-07-10 12:03] VITALS: O2SAT 97
[2022-07-10 21:09] VITALS: BP 111/67; PULSE 70
[2022-07-11 13:37] LABS: HBsAg Screen Negative (Negative)
== END 2022-07-10 20:10 | disposition home or self-care (01) | DRG 807 ==
LOC: OB 05:04 → OBSVTOIN 09:12
PROVIDERS: ADMIT Family Medicine; ATTEND Family Medicine
PROC: 10E0XZZ Delivery of Products of Conception, External Approach (ICD-10-PCS; principal; 2022-07-09)
PROC: 0KQM0ZZ Repair Perineum Muscle, Open Approach (ICD-10-PCS; 2022-07-09)
DX: O70.1 Second degree perineal laceration during delivery (principal); Z37.0 Single live birth; Z3A.39 39 weeks gestation of pregnancy; Z20.828 Contact with and (suspected) exposure to other viral communicable diseases
CPT/HCPCS: 36415; 80307; 81001; 85025; 86850; 86900; 86901; 87086; 87340; 90471; 90715; 94799; J2405; J2590; A9270-GY

== ENCOUNTER 2023-04-21 09:27 | Observation (INO) | payer OTHER ==
--- NOTE | 2023-04-21 09:34 | ERPHSYRPT ---
- History of Present Illness Time Seen by Provider: 04/21/23 09:34 Historian: patient Exam Limitations: no limitations Physician History: This is a 27-year-old white female patient who presents to the emergency department with upper abdominal pain and bilateral flank pain with associated nausea and multiple episodes of vomiting that occurred this morning. Patient has never had abdominal surgeries in the past. She denies chest pain. She denies shortness of breath. Patient states that she did drive herself into the hospital but can get a ride home. Timing/Duration: today Activities at Onset: none Quality: cramping Abdominal Pain Onset Location: RUQ, LUQ, epigastric Pain Radiation: flank Severity of Pain-Max: moderate Severity of Pain-Current: moderate Modifying Factors: Improves With: vomiting Associated Symptoms: back, loss of appetite, nausea, vomiting, No chest pain, No shortness of breath Previous symptoms: no prior history Allergies/Adverse Reactions: No Known Drug Allergies Allergy (Verified 04/21/23 09:43) Home Medications: No Reportable Medications [No Reported Medications] 04/21/23 [History] Hx Tetanus, Diphtheria Vaccination/Date Given: No Hx Influenza Vaccination/Date Given: No Hx Pneumococcal Vaccination/Date Given: No Travel Risk - International Travel Have you traveled outside of the country in past 3 weeks: No - Coronavirus Screening Are you exhibiting any of the following symptoms?: Yes Symptoms: Vomiting/Diarrhea Close contact with a COVID-19 positive Pt in past 14-21 Days: No - Vaccine Status Have you recieved a Covid-19 vaccination: No - Review of Systems Constitutional: No Symptoms Eyes: No Symptoms Ears, Nose, & Throat: No Symptoms Respiratory: No Symptoms Cardiac: No Symptoms Abdominal/Gastrointestinal: Abdominal Pain, Nausea, Vomiting, Appetite Changes, No Diarrhea, No Constipation Genitourinary Symptoms: No Symptoms Musculoskeletal: No Symptoms Skin: No Symptoms Neurological: No Symptoms Psychological: No Symptoms Endocrine: No Symptoms Hematologic/Lymphatic: No Symptoms Immunological/Allergic: No Symptoms All Other Systems: Reviewed and Negative - Past Medical History Pertinent Past Medical History: Yes Neurological History: No Pertinent History ENT History: No Pertinent History Cardiac History: No Pertinent History Respiratory History: No Pertinent History Endocrine Medical History: No Pertinent History Musculoskeletal History: Fractures GI Medical History: No Pertinent History History: No Pertinent History Psycho-Social History: No Pertinent History Female Reproductive Disorders: No Pertinent History Other Medical History: had R femur fracture as infant - Past Surgical History Past Surgical History: Yes Neuro Surgical History: No Pertinent History Cardiac: No Pertinent History Respiratory: No Pertinent History Gastrointestinal: No Pertinent History Genitourinary: No Pertinent History Musculoskeletal: Orthopedic Surgery Female Surgical History: No Pertinent History Other Surgical History: femur fx - Social History Smoking Status: Never smoker Exposure to second hand smoke: No Drug Use: none Patient Lives Alone: No - Nursing Vital Signs Nursing Vital Signs: Initial Vital Signs Temperature 98.8 F 04/21/23 09:45 Pulse Rate 71 04/21/23 09:45 Respiratory Rate 18 04/21/23 09:45 Blood Pressure 110/82 04/21/23 09:45 O2 Sat by Pulse Oximetry 100 04/21/23 09:45 Pain Scale Pain Intensity 5 - Physical Exam General Appearance: no apparent distress, alert, anxiety Eye Exam: PERRL/EOMI, eyes nml inspection, photophobia Ears, Nose, Throat Exam: normal ENT inspection, moist mucous membranes Neck Exam: normal inspection, non-tender, supple, full range of motion Respiratory Exam: normal breath sounds, lungs clear, airway intact, No chest tenderness, No respiratory distress Cardiovascular Exam: regular rate/rhythm, normal heart sounds, normal peripheral pulses Gastrointestinal/Abdomen Exam: soft, normal bowel sounds, tenderness (Bilateral upper quadrants and epigastric region to palpation), guarding (Bilateral upper quadrants and epigastric region to palpation), No rebound Pelvic Exam: not done Rectal Exam: not done Back Exam: normal inspection, normal range of motion, No CVA tenderness, No vertebral tenderness Neurologic Exam: alert, oriented x 3, cooperative, 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, normal mood/affect, nml cerebellar function, nml station & gait, sensation nml Skin Exam: normal color, warm, dry Lymphatic Exam: No adenopathy SpO2 Interpretation: normal O2 Delivery: Room Air - Course Nursing assessment & vital signs reviewed: Yes Ordered Tests: Active Orders 24 hr Category Date Time Status IV Insertion STAT Care 04/21/23 10:03 Active ABDOMEN AND PELVIS W/0 CONTRAS [CT] Stat Exams 04/21/23 10:03 Completed AMYLASE Stat Lab 04/21/23 10:20 Completed CBC W DIFF Stat Lab 04/21/23 10:20 Completed CMP Stat Lab 04/21/23 10:20 Completed HCG QUALITATIVE, SERUM Stat Lab 04/21/23 10:20 Completed LIPASE Stat Lab 04/21/23 10:20 Completed UA W/RFX UR CULTURE Stat Lab 04/21/23 11:37 Ordered Medication Summary Generic Name Dose Route Start Last Admin Trade Name Freq PRN Reason Stop Dose Admin Sodium Chloride 1,000 mls @ 999 mls/hr 04/21/23 13:04 04/21/23 13:19 Sodium Chloride 0.9% 1000 Ml IV 04/21/23 14:04 999 mls/hr .Q1H1M STA Administration Piperacillin Sod/Tazobactam 100 mls @ 200 mls/hr 04/21/23 13:04 04/21/23 13:20 Sod 3.375 gm/ Sodium Chloride IV 04/21/23 13:33 200 mls/hr STAT ONE Administration Discontinued Medications Generic Name Dose Route Start Last Admin Trade Name Flora PRN Reason Stop Dose Admin Hydromorphone HCl 1 mg 04/21/23 10:03 04/21/23 10:20 Hydromorphone 1 Mg/1ml Inj IV 04/21/23 10:04 1 mg STAT ONE Administration Hydromorphone HCl Confirm 04/21/23 10:08 Hydromorphone 1 Mg/1ml Inj Administered 04/21/23 10:09 Dose 1 mg .ROUTE .STK-MED ONE Sodium Chloride 1,000 mls @ 999 mls/hr 04/21/23 10:03 04/21/23 11:33 Sodium Chloride 0.9% 1000 Ml IV 04/21/23 11:03 Infused .Q1H1M STA Infusion Sodium Chloride Confirm 04/21/23 10:08 Sodium Chloride 0.9% 1000 Ml Administered 04/21/23 10:09 Dose 1,000 mls @ ud .ROUTE .STK-MED ONE Sodium Chloride Confirm 04/21/23 13:14 Sodium Chloride 100ml Mini-Bag Plus Administered 04/21/23 13:15 Dose 100 mls @ ud IV .STK-MED ONE Sodium Chloride Confirm 04/21/23 13:14 Sodium Chloride 0.9% 1000 Ml Administered 04/21/23 13:15 Dose 1,000 mls @ ud .ROUTE .STK-MED ONE Ondansetron HCl 4 mg 04/21/23 10:03 04/21/23 10:20 Ondansetron Hcl 4 Mg/2 Ml Vial IV 04/21/23 10:04 4 mg STAT ONE Administration Ondansetron HCl Confirm 04/21/23 10:08 Ondansetron Hcl 4 Mg/2 Ml Vial Administered 04/21/23 10:09 Dose 4 mg .ROUTE .STK-MED ONE Ondansetron HCl 4 mg 04/21/23 13:04 04/21/23 13:20 Ondansetron Hcl 4 Mg/2 Ml Vial IV 04/21/23 13:05 4 mg STAT ONE Administration Ondansetron HCl Confirm 04/21/23 13:14 Ondansetron Hcl 4 Mg/2 Ml Vial Administered 04/21/23 13:15 Dose 4 mg .ROUTE .STK-MED ONE Piperacillin Sod/Tazobactam Sod Confirm 04/21/23 13:14 Piperacillin/Tazobactam Sodium 3.375 Gm Vial Administered 04/21/23 13:15 Dose 3.375 gm IV .STK-MED ONE Lab/Rad Data: Laboratory Result Diagrams 04/21/23 10:20 04/21/23 10:20 Laboratory Results 04/21/23 04/21/23 04/21/23 Range/Units 10:20 10:20 10:20 WBC (4.0-10.5) x10^3/uL RBC (4.1-5.4) x10^6/uL Hgb (12.0-16.0) g/dL Hct (35-47) % MCV (78-100) fL MCH (26-32) pg MCHC (32-36) g/dL RDW (11.5-14.0) % Plt Count (150-450) x10^3/uL MPV (7.5-11.0) fL Gran % (36.0-66.0) % Immature Gran % (Auto) (0.00-0.4) % Nucleat RBC Rel Count (0.00-0.1) % Eos # (Auto) (0-0.5) x10^3/uL Immature Gran # (Auto) (0.00-0.03) x10^3u/L Absolute Lymphs (auto) (1.0-4.6) x10^3/uL Absolute Monos (auto) (0.0-1.3) x10^3/uL Absolute Nucleated RBC (0.00-0.01) x10^3u/L Lymphocytes % (24.0-44.0) % Monocytes % (0.0-12.0) % Eosinophils % (0.00-5.0) % Basophils % (0.0-0.4) % Absolute Granulocytes (1.4-6.9) x10^3/uL Basophils # (0-0.4) x10^3/uL Sodium 140 (137-145) mmol/L Potassium 4.1 (3.5-5.1) mmol/L Chloride 109 H (98-107) mmol/L Carbon Dioxide 19 L (22-30) mmol/L Anion Gap 15.6 H (5-15) MEQ/L BUN 13 (7-17) mg/dL Creatinine 0.64 (0.52-1.04) mg/dL Estimated GFR 124.1 ML/MIN Glucose 140 H (74-106) mg/dL Calcium 9.4 (8.4-10.2) mg/dL Total Bilirubin 0.90 (0.2-1.3) mg/dL AST 19 (14-36) U/L ALT 14 (0-35) U/L Alkaline Phosphatase 39 (38-126) U/L Serum Total Protein 7.7 (6.3-8.2) g/dL Albumin 4.5 (3.5-5.0) g/dL Amylase 117 H (30-110) U/L Lipase 64 (23-300) U/L Serum HCG, Qual NEGATIVE (NEGATIVE) Influenza Type A Ag NEGATIVE (NEGATIVE) Influenza Type B Ag NEGATIVE (NEGATIVE) RSV (PCR) NEGATIVE (NEGATIVE) SARS-CoV-2 (PCR) NEGATIVE (NEGATIVE) 04/21/23 Range/Units 10:20 WBC 17.0 H (4.0-10.5) x10^3/uL RBC 5.24 (4.1-5.4) x10^6/uL Hgb 15.0 (12.0-16.0) g/dL Hct 45.9 (35-47) % MCV 87.6 (78-100) fL MCH 28.6 (26-32) pg MCHC 32.7 (32-36) g/dL RDW 12.6 (11.5-14.0) % Plt Count 306 (150-450) x10^3/uL MPV 9.8 (7.5-11.0) fL Gran % 89.2 H (36.0-66.0) % Immature Gran % (Auto) 0.4 (0.00-0.4) % Nucleat RBC Rel Count 0.0 (0.00-0.1) % Eos # (Auto) 0.01 (0-0.5) x10^3/uL Immature Gran # (Auto) 0.07 H (0.00-0.03) x10^3u/L Absolute Lymphs (auto) 1.05 (1.0-4.6) x10^3/uL Absolute Monos (auto) 0.63 (0.0-1.3) x10^3/uL Absolute Nucleated RBC 0.00 (0.00-0.01) x10^3u/L Lymphocytes % 6.2 L (24.0-44.0) % Monocytes % 3.7 (0.0-12.0) % Eosinophils % 0.1 (0.00-5.0) % Basophils % 0.4 (0.0-0.4) % Absolute Granulocytes 15.20 H (1.4-6.9) x10^3/uL Basophils # 0.06 (0-0.4) x10^3/uL Sodium (137-145) mmol/L Potassium (3.5-5.1) mmol/L Chloride (98-107) mmol/L Carbon Dioxide (22-30) mmol/L Anion Gap (5-15) MEQ/L BUN (7-17) mg/dL Creatinine (0.52-1.04) mg/dL Estimated GFR ML/MIN Glucose (74-106) mg/dL Calcium (8.4-10.2) mg/dL Total Bilirubin (0.2-1.3) mg/dL AST (14-36) U/L ALT (0-35) U/L Alkaline Phosphatase (38-126) U/L Serum Total Protein (6.3-8.2) g/dL Albumin (3.5-5.0) g/dL Amylase (30-110) U/L Lipase (23-300) U/L Serum HCG, Qual (NEGATIVE) Influenza Type A Ag (NEGATIVE) Influenza Type B Ag (NEGATIVE) RSV (PCR) (NEGATIVE) SARS-CoV-2 (PCR) (NEGATIVE) - Progress Progress: improved, pain not gone completely, re-examined Progress Note: 04/21/23 10:09 This patient's medical issue is 1 of moderate complexity. The level complex in the workup performed is based on review of the patient's past medical history, review patient's medication list, review of the patient's drug allergy list, history of present illness and physical findings on examination. The workup in this patient includes placement of intravenous line, infusion of 1 L normal saline solution, infusion of 4 mg intravenous Zofran, infusion of 1 mg intravenous Dilaudid, amylase, lipase, CBC, CMP, urinalysis, test, CT scan of the abdomen pelvis without contrast. We will also perform viral studies on this patient. 04/21/23 12:45 Review of the patient's laboratory data and my interpretation shows a leukocytosis with a left shift. The urinalysis is pending. CT scan of the abdomen pelvis without contrast was interpreted by the radiologist and I reviewed the impression. Impression states appendix is diffusely prominent up to 1.1 cm without significant periappendiceal stranding. ? Is it mild/early appendicitis. No free air or free fluid 04/21/23 13:[address] Arturo Suresh, general surgeon. I reviewed the above-stated history, the chief complaint and the laboratory and radiographic results to him. I also reexamined the patient to better define where the patient's maximal pain is. She is definite that the pain is most intense at McBurney's point in the right lower quadrant. Dr. Arturo Suresh asked me to have the hospitalist admit the patient and he will make arrangements to perform an appendectomy later this afternoon/early evening 04/21/23 13:[address] Berger, our telehospitalist on-call at this time. I reviewed the patient history, chief complaint and the results of the patient's workup as well as my discussion with the general surgeon Dr. Arturo Suresh. He accepts the patient to be placed in observation. Discussed with : Kenyon Counseled pt/family regarding: lab results, diagnosis, need for follow-up, rad results Medical Desision Making - Diagnostic Testing Diagnostic test were ordered, analyzed, and reviewed by me: Yes Radiological Interpretation: Reviewed by me, Teleradiologist Report - Risk of complications The pt has a high risk of morbidity or mortality based on: Decision regarding hospitilization or escalation of hosp level of care - Departure Departure Disposition: Observation Clinical Impression: Acute appendicitis Condition: Stable Critical Care Time: No Referrals: MINA MERRITT MD [Primary Care Provider] - Follow up/PCP as directed
[2023-04-21] MEDS ORDERED: Hydromorphone 1 mg/ml Injection IV ONE (10:03)
[2023-04-21] MEDS ORDERED: Sodium Chloride 0.9% 1000 ML 1,000 ML IV STA ×2 (10:03→13:04)
[2023-04-21] MEDS ORDERED: Zofran 4 MG/2 ML VIAL IV ONE ×2 (10:03→13:04)
[2023-04-21] MEDS ORDERED: Sodium Chloride 0.9% 1000 ML 1,000 ML ONE ×2 (10:08→13:14)
[2023-04-21] MEDS ORDERED: Zofran 4 MG/2 ML VIAL ONE ×3 (10:08→15:37)
[2023-04-21] MEDS ORDERED: Hydromorphone 1 mg/ml Injection ONE ×2 (10:08→17:49)
[2023-04-21 10:23] LABS: BASOPHIL % 0.4 % (0.0-0.4); Basophil (Absolute #) 0.06 x10^3/uL (0-0.4); Eosinophil % 0.1 % (0.00-5.0); Eosinophil (Absolute #) 0.01 x10^3/uL (0-0.5); Hematocrit 45.9 % (35-47); IMMATURE GRAN # 0.07 x10^3u/L (0.00-0.03); IMMATURE GRAN % 0.4 % (0.00-0.4); Lymphocyte (Absolute #) 1.05 x10^3/uL (1.0-4.6); Lymphocytes % 6.2 % (24.0-44.0); Mean Cell Volume 87.6 fL (78-100); Mean Corpuscular Hemoglobin 28.6 pg (26-32); Mean Corpuscular Hgb Concent. 32.7 g/dL (32-36); Mean Platelet Volume 9.8 fL (7.5-11.0); Monocyte (Absolute #) 0.63 x10^3/uL (0.0-1.3); Monocytes % 3.7 % (0.0-12.0); Neutrophil % 89.2 % (36.0-66.0); Platelet Count 306 x10^3/uL (150-450); Red Blood Count 5.24 x10^6/uL (4.1-5.4); Red Cell Distribution Width 12.6 % (11.5-14.0)
[2023-04-21 10:35] LABS: HCG SERUM TEST NEGATIVE (NEGATIVE)
[2023-04-21 10:37] LABS: ALBUMIN 4.5 g/dL (3.5-5.0); ANION GAP 15.6 MEQ/L (5-15); BILIRUBIN,TOTAL 0.9 mg/dL (0.2-1.3); Calcium 9.4 mg/dL (8.4-10.2); Creatinine 1 0.64 mg/dL (0.52-1.04); EST GLOMERULAR FILTRATION RATE 124.1 ML/MIN; Potassium 4.1 mmol/L (3.5-5.1); Total Protein 7.7 g/dL (6.3-8.2)
[2023-04-21 11:01] LABS: INFLUENZA A NEGATIVE (NEGATIVE); INFLUENZA B NEGATIVE (NEGATIVE); RESPIRATORY SYNCTIAL VIRUS NEGATIVE (NEGATIVE); SARS-CoV-2 Xpert Express NEGATIVE (NEGATIVE)
--- NOTE | 2023-04-21 11:19 | XRAY ---
Indication: Pain, nausea, and vomiting. Leukocytosis. Multiple contiguous axial images obtained through the abdomen and pelvis without contrast. Comparison: None Lung bases clear with incidental small left base calcified granuloma. Heart not enlarged. Small hiatal hernia. Noncontrasted stomach and bowel loops appear nonobstructed. Appendix is diffusely prominent up to 1.1 cm diameter without significant periappendiceal stranding. Rule out mild/early appendicitis. No free fluid/air. Nonobstructing left renal punctate calculus. Uterus demonstrates IUD in situ. Remaining liver, gallbladder, pancreas, spleen, adrenal glands, kidneys, ureters, bladder, uterus, and aorta are unremarkable for noncontrast exam. Osseous structures intact. Impression: 1. Prominent appendix without periappendiceal stranding. Rule out mild/early appendicitis. 2. Incidental nonobstructing left renal micro-calculus, small hiatal hernia, left lung base calcified granuloma, and IUD in situ.
[2023-04-21] MEDS ORDERED: PIPERACILLIN/TAZOBACTAM 3.375 GM in Sodium Chloride 100ML MINI-BAG PLUS 100 ML IV ONE (13:04)
[2023-04-21] MEDS ORDERED: PIPERACILLIN/TAZOBACTAM IV ONE (13:14)
[2023-04-21] MEDS ORDERED: Sodium Chloride 100ML MINI-BAG PLUS 100 ML IV ONE (13:14)
[2023-04-21] MEDS ORDERED: Zofran 4 MG/2 ML VIAL IV PRN (14:36)
[2023-04-21] MEDS ORDERED: Hydromorphone 1 mg/ml Injection IV PRN ×2 (14:36→15:03)
--- NOTE | 2023-04-21 14:52 | PCM.HP ---
History of Present Illness - Chief Complaint Chief Complaint: Appendicitis Date: 04/21/23 History of Present Illness: is a 27 year old female with no pmhx who presents today with complaints of RUQ abdominal pain radiating to her back with associated nausea and vomiting since this morning. Patient states pain was sharp in characteristic with no relieving factors. Upon examination, pain at MCBurney's point Rovsing's sign is positive.Denies fever, chills, CP, SOB, or dizziness. Upon presentation patient was afebrile with unremarkable vitals. CT of the abdomen/pelvis demonstrates a prominent appendix without periappendiceal stranding. Lab findings remarkable for WBC at 17, co2 at 19, GAP 15.6, amylase 117. Surgery consulted and plans for lap appy at 4pm today. Patient given dilaudid, zofran, and zosyn with fluid bolus in ED. - Review of Systems Constitutional: No Symptoms Eyes: No Symptoms Ears, Nose, & Throat: No Symptoms Respiratory: No Symptoms Cardiac: No Symptoms Abdominal/Gastrointestinal: Abdominal Pain, Nausea, Vomiting Genitourinary Symptoms: No Symptoms Musculoskeletal: Back Pain Skin: No Symptoms Neurological: No Symptoms Psychological: No Symptoms Medications & Allergies Home Medications: Home Medication List No Reportable Medications [No Reported Medications] 04/21/23 [History Confirmed 04/21/23] Allergies/Adverse Reactions: Allergies Allergy/AdvReac Type Severity Reaction Status Date / Time No Known Drug Allergies Allergy Verified 04/21/23 09:43 - Past Medical History Past Medical History: Yes Neurological History: No Pertinent History ENT History: No Pertinent History Cardiac History: No Pertinent History Respiratory History: No Pertinent History Endocrine Medical History: No Pertinent History Musculoskelatal History: Fractures GI Medical History: No Pertinent History History: No Pertinent History Pyscho-Social History: No Pertinent History Reproductive Disorders: No Pertinent History Comment: had R femur fracture as - Female History Hx Last Menstrual Period: dec Are you now?: No - Past Surgical History Past Surgical History: Yes Neuro Surgical History: No Pertinent History Cardiac History: No Pertinent History Respiratory Surgery: No Pertinent History GI Surgical History: No Pertinent History Genitourinary Surgical Hx: No Pertinent History Musculskeletal Surgical Hx: Orthopedic Surgery Female Surgical History: No Pertinent History Other Surgical History: femur fx - Social History Smoking Status: Never smoker Exposure to second hand smoke: No Alcohol: None Drug Use: none - Physical Exam Vital Signs: Vital Signs - 24 hr Temp Pulse Resp BP BP Pulse Ox 04/21/23 13:31 114/75 99 04/21/23 13:01 112/71 98 04/21/23 13:00 76 16 112/71 98 04/21/23 12:30 97/70 98 04/21/23 12:00 104/72 100 04/21/23 11:33 118/72 100 04/21/23 11:15 98.8 F 71 110/82 97 04/21/23 11:00 117/88 97 04/21/23 09:45 98.8 F 71 18 110/82 100 General Appearance: no apparent distress Neurologic Exam: alert, oriented x 3, cooperative Eye Exam: PERRL/EOMI Ears, Nose, Throat Exam: normal ENT inspection Neck Exam: normal inspection Respiratory Exam: normal breath sounds, lungs clear Cardiovascular Exam: regular rate/rhythm, normal heart sounds Gastrointestinal/Abdomen Exam: soft, normal bowel sounds (Postitive Rovsing's sign, TTP RUQ) Pelvic Exam: not done Rectal Exam: deferred Back Exam: normal inspection Extremity Exam: normal inspection Results - Labs Lab/Micro Results: Lab Results-Last 24 Hours 04/21/23 04/21/23 04/21/23 Range/Units 10:20 10:20 10:20 WBC 17.0 H (4.0-10.5) x10^3/uL RBC 5.24 (4.1-5.4) x10^6/uL Hgb 15.0 (12.0-16.0) g/dL Hct 45.9 (35-47) % MCV 87.6 (78-100) fL MCH 28.6 (26-32) pg MCHC 32.7 (32-36) g/dL RDW 12.6 (11.5-14.0) % Plt Count 306 (150-450) x10^3/uL MPV 9.8 (7.5-11.0) fL Gran % 89.2 H (36.0-66.0) % Immature Gran % (Auto) 0.4 (0.00-0.4) % Nucleat RBC Rel Count 0.0 (0.00-0.1) % Eos # (Auto) 0.01 (0-0.5) x10^3/uL Immature Gran # (Auto) 0.07 H (0.00-0.03) x10^3u/L Absolute Lymphs (auto) 1.05 (1.0-4.6) x10^3/uL Absolute Monos (auto) 0.63 (0.0-1.3) x10^3/uL Absolute Nucleated RBC 0.00 (0.00-0.01) x10^3u/L Lymphocytes % 6.2 L (24.0-44.0) % Monocytes % 3.7 (0.0-12.0) % Eosinophils % 0.1 (0.00-5.0) % Basophils % 0.4 (0.0-0.4) % Absolute Granulocytes 15.20 H (1.4-6.9) x10^3/uL Basophils # 0.06 (0-0.4) x10^3/uL Sodium 140 (137-145) mmol/L Potassium 4.1 (3.5-5.1) mmol/L Chloride 109 H (98-107) mmol/L Carbon Dioxide 19 L (22-30) mmol/L Anion Gap 15.6 H (5-15) MEQ/L BUN 13 (7-17) mg/dL Creatinine 0.64 (0.52-1.04) mg/dL Estimated GFR 124.1 ML/MIN Glucose 140 H (74-106) mg/dL Calcium 9.4 (8.4-10.2) mg/dL Total Bilirubin 0.90 (0.2-1.3) mg/dL AST 19 (14-36) U/L ALT 14 (0-35) U/L Alkaline Phosphatase 39 (38-126) U/L Serum Total Protein 7.7 (6.3-8.2) g/dL Albumin 4.5 (3.5-5.0) g/dL Amylase 117 H (30-110) U/L Lipase 64 (23-300) U/L Serum HCG, Qual NEGATIVE (NEGATIVE) Influenza Type A Ag (NEGATIVE) Influenza Type B Ag (NEGATIVE) RSV (PCR) (NEGATIVE) SARS-CoV-2 (PCR) (NEGATIVE) 04/21/23 Range/Units 10:20 WBC (4.0-10.5) x10^3/uL RBC (4.1-5.4) x10^6/uL Hgb (12.0-16.0) g/dL Hct (35-47) % MCV (78-100) fL MCH (26-32) pg MCHC (32-36) g/dL RDW (11.5-14.0) % Plt Count (150-450) x10^3/uL MPV (7.5-11.0) fL Gran % (36.0-66.0) % Immature Gran % (Auto) (0.00-0.4) % Nucleat RBC Rel Count (0.00-0.1) % Eos # (Auto) (0-0.5) x10^3/uL Immature Gran # (Auto) (0.00-0.03) x10^3u/L Absolute Lymphs (auto) (1.0-4.6) x10^3/uL Absolute Monos (auto) (0.0-1.3) x10^3/uL Absolute Nucleated RBC (0.00-0.01) x10^3u/L Lymphocytes % (24.0-44.0) % Monocytes % (0.0-12.0) % Eosinophils % (0.00-5.0) % Basophils % (0.0-0.4) % Absolute Granulocytes (1.4-6.9) x10^3/uL Basophils # (0-0.4) x10^3/uL Sodium (137-145) mmol/L Potassium (3.5-5.1) mmol/L Chloride (98-107) mmol/L Carbon Dioxide (22-30) mmol/L Anion Gap (5-15) MEQ/L BUN (7-17) mg/dL Creatinine (0.52-1.04) mg/dL Estimated GFR ML/MIN Glucose (74-106) mg/dL Calcium (8.4-10.2) mg/dL Total Bilirubin (0.2-1.3) mg/dL AST (14-36) U/L ALT (0-35) U/L Alkaline Phosphatase (38-126) U/L Serum Total Protein (6.3-8.2) g/dL Albumin (3.5-5.0) g/dL Amylase (30-110) U/L Lipase (23-300) U/L Serum HCG, Qual (NEGATIVE) Influenza Type A Ag NEGATIVE (NEGATIVE) Influenza Type B Ag NEGATIVE (NEGATIVE) RSV (PCR) NEGATIVE (NEGATIVE) SARS-CoV-2 (PCR) NEGATIVE (NEGATIVE) - Radiology Impressions Radiology Exams & Impressions: Radiology Procedures Category Date Time Status ABDOMEN AND PELVIS W/0 CONTRAS [CT] Stat Exams 04/21/23 10:03 Completed Assessment/Plan (1) Acute appendicitis Current Visit: Yes Status: Acute Assessment & Plan: -CT showing Prominent appendix without periappendiceal stranding. -WBC elevated -Surgery consulted, Plan for surgical intervention this evening -Patient given zosyn in ED, consider continuing based on surgical findings -anti-emetics, pain control Code(s): K35.80 - UNSPECIFIED ACUTE APPENDICITIS (2) Leukocytosis Current Visit: Yes Status: Acute Assessment & Plan: -Most likely secondary to appendicitis Code(s): D72.829 - ELEVATED WHITE BLOOD CELL COUNT, UNSPECIFIED (3) High anion gap metabolic acidosis Current Visit: Yes Status: Acute Assessment & Plan: -Most likely secondary to infection and N/V, will continue to monitor Code(s): E87.29 - OTHER ACIDOSIS (4) Nausea & vomiting Current Visit: Yes Status: Acute Assessment & Plan: -anti-emetics Code(s): R11.2 - NAUSEA WITH VOMITING, UNSPECIFIED
[2023-04-21] MEDS ORDERED: MEFOXIN 2 GM PREMIX** 2 GM/50 ML ML IV SCH (15:00)
[2023-04-21] MEDS ORDERED: Lactated Ringers 1,000 ML IV SCH (15:00)
[2023-04-21] MEDS ORDERED: TYLENOL 325 MG PO PRN (15:02)
[2023-04-21] MEDS ORDERED: Sensorcaine 0.25% 10 ML ONE (15:09)
[2023-04-21] MEDS ORDERED: DIPRIVAN 200 MG/20 ML IV ONE (15:37)
[2023-04-21] MEDS ORDERED: DEXMEDETOMIDINE 80 MCG/20ML-NS IV ONE (15:37)
[2023-04-21] MEDS ORDERED: Xylocaine-Mpf 2% 5 Ml Vial ONE (15:37)
[2023-04-21] MEDS ORDERED: TORAdol 30 mg Injection ONE ×2 (15:37→16:02)
[2023-04-21] MEDS ORDERED: BRIDION 200MG/2ML IV ONE (15:37)
[2023-04-21] MEDS ORDERED: Zemuron 100 MG/10 ML ONE (15:37)
[2023-04-21] MEDS ORDERED: Decadron 4 MG INJ ONE (15:37)
[2023-04-21] MEDS ORDERED: Versed 2 MG/2 ML Injection ONE (15:38)
[2023-04-21] MEDS ORDERED: SUBLIMAZE 100 MCG/2 ML ONE (15:38)
[2023-04-21] MEDS ORDERED: Lactated Ringers 1,000 ML IV ONE (15:39)
[2023-04-21] MEDS ORDERED: OFIRMEV 100 ML IV ONE (15:39)
[2023-04-21] MEDS ORDERED: Pre-Attached Lta Kit TP ONE (15:39)
[2023-04-21] MEDS ORDERED: ROBINUL ONE (16:33)
[2023-04-21] MEDS ORDERED: ATROPINE SULFATE 1MG ONE (16:35)
[2023-04-21 19:16] LABS: Appearance Clear (Clear); Bacteria Rare /HPF (None Seen); Bilirubin Negative (Negative); Blood Large (Negative); Epithelial Cells Rare /HPF (None Seen); Glucose, Urine Negative (Negative); Hyaline Casts NONE SEEN /LPF (0-2); Ketones 40 (Negative); Leukocyte Esterase Negative (Negative); Nitrite Negative (Negative); Ph 6.5 (4.6-8.0); Protein,Urine Dip Negative (Negative); RBC >100 /HPF (0-5); Specific Gravity 1.025 (1.005-1.030); Urobilinogen 0.2 mg/dL (0.2)
[2023-04-21 19:17] LABS: ADD URINE CULTURE? NO (NO)
[2023-04-21] MEDS: NORCO 5/325 MG PO PRN (20:27)
[2023-04-21] MEDS: Sodium Chloride 0.9% 1000 ML 1,000 ML IV SCH (22:47)
[2023-04-22 04:58] LABS: Absolute Neutrophil Ct (ANC) 10.57 x10^3/uL (1.4-6.9); BASOPHIL % 0.1 % (0.0-0.4); Basophil (Absolute #) 0.01 x10^3/uL (0-0.4); Eosinophil (Absolute #) 0 x10^3/uL (0-0.5); Hematocrit 34.8 % (35-47); Hemoglobin 11.3 g/dL (12.0-16.0); IMMATURE GRAN # 0.06 x10^3u/L (0.00-0.03); IMMATURE GRAN % 0.5 % (0.00-0.4); Lymphocyte (Absolute #) 1.04 x10^3/uL (1.0-4.6); Lymphocytes % 8.3 % (24.0-44.0); Mean Cell Volume 88.1 fL (78-100); Mean Corpuscular Hemoglobin 28.6 pg (26-32); Mean Corpuscular Hgb Concent. 32.5 g/dL (32-36); Mean Platelet Volume 10.5 fL (7.5-11.0); Monocyte (Absolute #) 0.84 x10^3/uL (0.0-1.3); Monocytes % 6.7 % (0.0-12.0); Neutrophil % 84.4 % (36.0-66.0); Platelet Count 275 x10^3/uL (150-450); Red Blood Count 3.95 x10^6/uL (4.1-5.4); Red Cell Distribution Width 12.8 % (11.5-14.0); White Blood Count 12.5 x10^3/uL (4.0-10.5)
--- NOTE | 2023-04-22 05:14 | PCM.DS ---
Discharge Summary Date of Admission: 04/21/23 14:28 Date of Discharge: 04/22/23 Admitting Physician: ANTHONY STOKES MD Primary Care Provider: MINA MERRITT MARGAUX Allergies Allergies No Known Drug Allergies Allergy (Verified 04/21/23 09:43) Hospital Summary - Hospital Course Hospital Course: is a 27 year old female with no pmhx who presents 04/21/23 with complaints of RUQ abdominal pain radiating to her back with associated nausea and vomiting since that morning. CT of the abdomen/pelvis demonstrates a prominent appendix without periappendiceal stranding. Sugery was consulted. Zosyn given. Surgical intervention with no complications. Cleared by surgery for discharge. Will dismiss today with written pain script per Surgery. Patient advised follow up in one week with surgery. Discharge Note New Diagnosis: Acute appendicitis New Medications: [place] Latest Assessment & Plan (1) Acute appendicitis Current Visit: Yes Status: Acute Assessment & Plan: -CT showing Prominent appendix without periappendiceal stranding. -WBC elevated -Surgery consulted, Plan for surgical intervention this evening -Patient given zosyn in ED, consider continuing based on surgical findings -anti-emetics, pain control Code(s): K35.80 - UNSPECIFIED ACUTE APPENDICITIS (2) Leukocytosis Current Visit: Yes Status: Acute Assessment & Plan: -Most likely secondary to appendicitis Code(s): D72.829 - ELEVATED WHITE BLOOD CELL COUNT, UNSPECIFIED (3) High anion gap metabolic acidosis Current Visit: Yes Status: Acute Assessment & Plan: -Most likely secondary to infection and N/V, will continue to monitor Code(s): E87.29 - OTHER ACIDOSIS (4) Nausea & vomiting Current Visit: Yes Status: Acute Assessment & Plan: -anti-emetics Code(s): R11.2 - NAUSEA WITH VOMITING, UNSPECIFIED I spent 35 minutes [id number] with the patient on the day of discharge performing discharge exam, discussing hospital stay and discharge instructions with patient and caregivers, preparation of discharge records, prescriptions & referral forms and addressing any questions/concerns the patient had as documented above. - Vitals & Intake/Output Vital Signs: Vital Signs Temperature 97.8 F 04/22/23 03:15 Pulse Rate 58 L 04/22/23 03:15 Respiratory Rate 17 04/22/23 04:00 Blood Pressure 89/55 04/22/23 03:15 O2 Sat by Pulse Oximetry 92 L 04/22/23 03:15 Intake & Output: Intake & Output 04/19/23 04/20/23 04/21/23 04/22/23 11:59 11:59 11:59 11:59 Intake Total 1679 Output Total 450 Balance 1229 Weight 86.5 kg 86.5 kg - Lab Result Diagrams: 04/22/23 04:38 04/22/23 04:38 Lab Results-Last 24 Hrs: Lab Results-Last 24 Hours 04/21/23 04/21/23 04/21/23 Range/Units 10:20 10:20 10:20 WBC 17.0 H (4.0-10.5) x10^3/uL RBC 5.24 (4.1-5.4) x10^6/uL Hgb 15.0 (12.0-16.0) g/dL Hct 45.9 (35-47) % MCV 87.6 (78-100) fL MCH 28.6 (26-32) pg MCHC 32.7 (32-36) g/dL RDW 12.6 (11.5-14.0) % Plt Count 306 (150-450) x10^3/uL MPV 9.8 (7.5-11.0) fL Gran % 89.2 H (36.0-66.0) % Immature Gran % (Auto) 0.4 (0.00-0.4) % Nucleat RBC Rel Count 0.0 (0.00-0.1) % Eos # (Auto) 0.01 (0-0.5) x10^3/uL Immature Gran # (Auto) 0.07 H (0.00-0.03) x10^3u/L Absolute Lymphs (auto) 1.05 (1.0-4.6) x10^3/uL Absolute Monos (auto) 0.63 (0.0-1.3) x10^3/uL Absolute Nucleated RBC 0.00 (0.00-0.01) x10^3u/L Lymphocytes % 6.2 L (24.0-44.0) % Monocytes % 3.7 (0.0-12.0) % Eosinophils % 0.1 (0.00-5.0) % Basophils % 0.4 (0.0-0.4) % Absolute Granulocytes 15.20 H (1.4-6.9) x10^3/uL Basophils # 0.06 (0-0.4) x10^3/uL Sodium 140 (137-145) mmol/L Potassium 4.1 (3.5-5.1) mmol/L Chloride 109 H (98-107) mmol/L Carbon Dioxide 19 L (22-30) mmol/L Anion Gap 15.6 H (5-15) MEQ/L BUN 13 (7-17) mg/dL Creatinine 0.64 (0.52-1.04) mg/dL Estimated GFR 124.1 ML/MIN Glucose 140 H (74-106) mg/dL Calcium 9.4 (8.4-10.2) mg/dL Total Bilirubin 0.90 (0.2-1.3) mg/dL AST 19 (14-36) U/L ALT 14 (0-35) U/L Alkaline Phosphatase 39 (38-126) U/L Serum Total Protein 7.7 (6.3-8.2) g/dL Albumin 4.5 (3.5-5.0) g/dL Amylase 117 H (30-110) U/L Lipase 64 (23-300) U/L Serum HCG, Qual NEGATIVE (NEGATIVE) Urine Color (Yellow) Urine Appearance (Clear) Urine pH (4.6-8.0) Ur Specific [place] (1.005-1.030) Urine Protein (Negative) Urine Glucose (UA) (Negative) mg/dL Urine Ketones (Negative) Urine Blood (Negative) Urine Nitrite (Negative) Urine Bilirubin (Negative) Urine Urobilinogen (0.2) mg/dL Ur Leukocyte Esterase (Negative) U Hyaline Cast (Auto) (0-2) /LPF Urine Microscopic RBC (0-5) /HPF Urine Microscopic WBC (0-5) /HPF Ur Epithelial Cells (None Seen) /HPF Urine Bacteria (None Seen) /HPF Urine Yeast (Budding) (None Seen) /HPF Urine Culture Reflexed (NO) Influenza Type A Ag (NEGATIVE) Influenza Type B Ag (NEGATIVE) RSV (PCR) (NEGATIVE) SARS-CoV-2 (PCR) (NEGATIVE) 04/21/23 04/21/23 04/22/23 Range/Units 10:20 11:37 04:38 WBC 12.5 H (4.0-10.5) x10^3/uL RBC 3.95 L (4.1-5.4) x10^6/uL Hgb 11.3 L D (12.0-16.0) g/dL Hct 34.8 L (35-47) % MCV 88.1 (78-100) fL MCH 28.6 (26-32) pg MCHC 32.5 (32-36) g/dL RDW 12.8 (11.5-14.0) % Plt Count 275 (150-450) x10^3/uL MPV 10.5 (7.5-11.0) fL Gran % 84.4 H (36.0-66.0) % Immature Gran % (Auto) 0.5 H (0.00-0.4) % Nucleat RBC Rel Count 0.0 (0.00-0.1) % Eos # (Auto) 0 (0-0.5) x10^3/uL Immature Gran # (Auto) 0.06 H (0.00-0.03) x10^3u/L Absolute Lymphs (auto) 1.04 (1.0-4.6) x10^3/uL Absolute Monos (auto) 0.84 (0.0-1.3) x10^3/uL Absolute Nucleated RBC 0.00 (0.00-0.01) x10^3u/L Lymphocytes % 8.3 L (24.0-44.0) % Monocytes % 6.7 (0.0-12.0) % Eosinophils % 0.0 (0.00-5.0) % Basophils % 0.1 (0.0-0.4) % Absolute Granulocytes 10.57 H (1.4-6.9) x10^3/uL Basophils # 0.01 (0-0.4) x10^3/uL Sodium (137-145) mmol/L Potassium (3.5-5.1) mmol/L Chloride (98-107) mmol/L Carbon Dioxide (22-30) mmol/L Anion Gap (5-15) MEQ/L BUN (7-17) mg/dL Creatinine (0.52-1.04) mg/dL Estimated GFR ML/MIN Glucose (74-106) mg/dL Calcium (8.4-10.2) mg/dL Total Bilirubin (0.2-1.3) mg/dL AST (14-36) U/L ALT (0-35) U/L Alkaline Phosphatase (38-126) U/L Serum Total Protein (6.3-8.2) g/dL Albumin (3.5-5.0) g/dL Amylase (30-110) U/L Lipase (23-300) U/L Serum HCG, Qual (NEGATIVE) Urine Color Yellow (Yellow) Urine Appearance Clear (Clear) Urine pH 6.5 (4.6-8.0) Ur Specific [place] 1.025 (1.005-1.030) Urine Protein Negative (Negative) Urine Glucose (UA) Negative (Negative) mg/dL Urine Ketones 40 A (Negative) Urine Blood Large A (Negative) Urine Nitrite Negative (Negative) Urine Bilirubin Negative (Negative) Urine Urobilinogen 0.2 (0.2) mg/dL Ur Leukocyte Esterase Negative (Negative) U Hyaline Cast (Auto) NONE SEEN (0-2) /LPF Urine Microscopic RBC >100 A (0-5) /HPF Urine Microscopic WBC 6-10 A (0-5) /HPF Ur Epithelial Cells Rare (None Seen) /HPF Urine Bacteria Rare A (None Seen) /HPF Urine Yeast (Budding) (None Seen) /HPF Urine Culture Reflexed NO (NO) Influenza Type A Ag NEGATIVE (NEGATIVE) Influenza Type B Ag NEGATIVE (NEGATIVE) RSV (PCR) NEGATIVE (NEGATIVE) SARS-CoV-2 (PCR) NEGATIVE (NEGATIVE) - Radiology Exams Ordered Rad Exams-Entire Visit: Radiology Procedures Category Date Time Status ABDOMEN AND PELVIS W/0 CONTRAS [CT] Stat Exams 04/21/23 10:03 Completed Discharge Exam General Appearance: no apparent distress Neurologic Exam: alert, oriented x 3, cooperative Eye Exam: PERRL Ears, Nose, Throat Exam: normal ENT inspection Neck Exam: normal inspection Respiratory Exam: normal breath sounds, lungs clear Cardiovascular Exam: regular rate/rhythm, normal heart sounds Gastrointestinal/Abdomen Exam: soft, normal bowel sounds, tenderness (3 surgical incision sites covered in gauze) Pelvic Exam: deferred Rectal Exam: deferred Wound Assessment: Skin/Wound Assessment Wound/Incision Assessment Start: 04/21/23 15:01 Text: Status: Active Freq: Q4H Protocol: Document 12/15/23 04:00 (Rec: 04/22/23 04:13 [email or web address]) Wound/Incision Assessment Abdomen Wound Assessment Admission Wound Type Incision Wound Stage Non Pressure Wound Dressing Status Dry & Intact Drainage Amount None Drainage Odor None/Absent Wound Photo Photo Taken No Final Diagnosis/Problem List - Final Discharge Diagnosis/Problem (1) Acute appendicitis Current Visit: Yes Status: Resolved Code(s): K35.80 - UNSPECIFIED ACUTE [place] ENDICITIS (2) Leukocytosis Current Visit: Yes Status: Resolved Code(s): D72.829 - ELEVATED WHITE BLOOD CELL COUNT, UNSPECIFIED (3) High anion gap metabolic acidosis Current Visit: Yes Status: Resolved Code(s): E87.29 - OTHER ACIDOSIS (4) Nausea & vomiting Current Visit: Yes Status: Resolved Code(s): R11.2 - NAUSEA WITH VOMITING, UNSPECIFIED - Discharge Disposition: Home, Self-Care Condition: Stable Prescriptions: New Hydrocodone/Acetaminophen [Hydrocodone-Acetamin 5-325 mg] 1 tab PO Q4HPRN PRN 4 Days #20 tablet MDD 6 PRN Reason: Pain Additional Instructions: 1. No lifting for two (2) weeks. Nothing heavier than 1 gallon of milk. We do not want you straining, thus possible opening the incision. 2. If pain develops in shoulder, apply a heating pad on low setting. The pain is caused from the air they inflate the belly with. The air traps under the diaphragm and refers pain to the shoulder. The pain medication will probably not help, just the heating pad or walking may relieve the pain. This pain should go away in 3-4 days. 3. You may shower after 24 hours. You may take a tub bath in two weeks. (Leave the steri strips alone to the puncture sites) 4. Some nausea is normal. If you experience nausea or vomiting, limit your food intake. If the nausea and vomiting last longer than 24 hours, contact the doctor. 5. Take the pain medication as prescribed. Some pain and swelling is normal. Our goal is to keep your pain at a tolerable level. If the pain is not tolerable, contact the doctor. Usually you can transition to Tylenol and Ibuprofen after a couple days. 6. Remove band aid/dressing in 24 hours. You may need to apply another bandaide or dressing if the site is still oozing. This is normal. If you are saturating the dressing every hour, contact the doctor. 7. Leave steri strips in place for 1 week or until you return to the office. 8. If drainage of pus or foul odor or fever develops contact your doctor. 9. It is important to cough and deep breath after your surgery several times a day. This helps prevent lung infections. When coughing, support the surgical area with a pillow. Follow up with: MINA MERRITT MD [Primary Care Provider] - 05/05/23 2:15 pm MIKE LAFLEUR MD [ACTIVE STAFF] - (FOLLOW UP IN [place] OR [place] OFFICE IN 1-2 WEEKS AFTER DISCHARGE.)
[2023-04-22 05:31] LABS: ALBUMIN 3.4 g/dL (3.5-5.0); ANION GAP 11.1 MEQ/L (5-15); BILIRUBIN,TOTAL 0.6 mg/dL (0.2-1.3); Calcium 8.3 mg/dL (8.4-10.2); Creatinine 1 0.51 mg/dL (0.52-1.04); EST GLOMERULAR FILTRATION RATE 131.1 ML/MIN; Potassium 3.6 mmol/L (3.5-5.1); Total Protein 6.2 g/dL (6.3-8.2)
[2023-04-22] MEDS: Sodium Chloride 0.9% 1000 ML 1,000 ML IV SCH (07:22)
[2023-04-22 07:31] VITALS: BP 104/57; PULSE 63; RESP 16; TEMP 97.1; O2SAT 99
[2023-04-22] MEDS: NORCO 5/325 MG PO PRN (07:36)
--- NOTE | 2023-04-22 08:16 | CONS ---
CONSULT DATE: 04/21/2023 REASON FOR CONSULT: Right lower quadrant pain suspected acute appendicitis. HISTORY: This patient presents with some onset of abdominal pain, nausea and vomiting starting this morning around 0600 hours that woke her from sleep. The pain was initially vague and has progressed to the right lower quadrant throughout the morning. She has never had any episodes like this before. She denies fever, chest pain or shortness of breath. It hurts to move around. She has not been able to eat any food today. The pain is relieved with pain medication to some degree but does not completely go away. REVIEW OF SYSTEMS: As noted in the history of present illness otherwise negative. PAST MEDICAL HISTORY: None. PAST SURGICAL HISTORY: None. ALLERGIES: NKDA. SOCIAL HISTORY: No tobacco. FAMILY HISTORY: No irritable bowel disease. PHYSICAL EXAMINATION: GENERAL: No acute distress. HEENT: Sclera nonicteric. Extraocular movements intact. NECK: Supple. No JVD. CHEST: Nonlabored breathing. ABDOMEN: Soft, nondistended, focally tender in the right lower extremity with some voluntary guarding. NEURO: Awake, alert, oriented. PSYCH: Appropriate mood and affect. ASSESSMENT: Acute appendicitis. PLAN: 1) Discussed the benefits of surgery including alternatives to surgery with the patient including risk of bleeding, infection, bowel or other organ injury, potentially other etiology for abdominal pain. The patient would like to proceed with laparoscopic appendectomy possible open. 2) Reviewed CT images and the appendix is significantly dilated and elongated measuring over 1 cm suspicious for early appendicitis with no signs of perforation. 3) Reviewed CBC, CMP, amylase, lipase: Significant for elevated white blood cell count at 17,000 as well as an elevated amylase. The case was discussed with the emergency department physician.
--- NOTE | 2023-04-22 08:42 | OP ---
SURGERY DATE/TIME: 04/21/2023 1617 PREOPERATIVE DIAGNOSIS: Acute appendicitis. POSTOPERATIVE DIAGNOSIS: Acute uncomplicated appendicitis. PROCEDURE: Laparoscopic appendectomy. SURGEON: Arturo Suresh M.D. ANESTHESIA: General. ESTIMATED BLOOD LOSS: 5 cc. COMPLICATIONS: None. SPECIMEN: Appendix. FINDINGS: Early uncomplicated appendicitis. INDICATION: This patient presents with signs, symptoms and CT scan evidence of acute appendicitis. After discussing the risks and benefits of surgery and alternative to surgery, the patient wished to proceed. DESCRIPTION OF PROCEDURE: The patient went to the operating room, placed supine on operating table, placed under general anesthesia. Left arm tucked. The abdomen was prepped and draped in sterile fashion. Veress needle inserted through an incision at the top of the umbilicus after dissecting down to the fascia and lifted with a clamp. Pneumoperitoneum obtained. A 5 mm optical trocar inserted. Under direct visualization the abdomen entered. The area on entry was inspected. There did not appear to be any inadvertent injury. Additional 5 mm suprapubic and 12 mm left lower quadrant trocars were placed. The patient was positioned. The appendix tip was obviously inflamed but nonruptured. A window was created between the base of the appendix and the mesoappendix. The mesoappendix was transected with [place] LigaSure. The appendix was stapled off at its juncture with the cecum with 45 white EndoGIA stapler. The appendix was removed with a bag. The 12 port was closed with 0 Vicryl suture with suture passer. The remaining trocars were removed under direct visualization. The abdomen desufflated. The wound injected with 0.25% Marcaine. Wounds closed with 4-0 Vicryl sutures. Dressings were applied. The patient recovered and taken to PACU in stable condition.
== END 2023-04-22 10:40 | disposition home or self-care (01) ==
LOC: ED 09:27 → MED SURG 14:28
PROVIDERS: ADMIT Internal Medicine; ATTEND Internal Medicine
DX: K35.80 Unspecified acute appendicitis (principal); D72.829 Elevated white blood cell count, unspecified; E87.29 Other acidosis; R11.2 Nausea with vomiting, unspecified; Z20.828 Contact with and (suspected) exposure to other viral communicable diseases
CPT/HCPCS: 0241U; 36000; 36415; 44970; 74176; 80053; 81001; 82150; 83690; 84703; 85025; 96360; 96374; 96375; 96376; 99285; G0378; J0461; J0694; J1100; J1170; J1885; J2250; J2405; J2704; J3010; Q3014; A9270-GY

== ENCOUNTER → 2024-01-27 | Emergency (ER) | payer OTHER | LOC: ED 00:57 | DX: J02.9 Acute pharyngitis, unspecified (principal) | CPT/HCPCS: 87651 ==

== ENCOUNTER 2024-05-06 20:10 | Emergency (ER) | payer OTHER ==
[2024-05-06 20:55] VITALS: TEMP 98.9
[2024-05-06] MEDS ORDERED: Zofran 4 MG/2 ML VIAL ONE (21:03)
[2024-05-06] MEDS ORDERED: TORAdol 30 mg Injection ONE (21:03)
--- NOTE | 2024-05-06 21:03 | ERPHSYRPT ---
- History of Present Illness Time Seen by Provider: 05/06/24 20:48 Historian: patient Exam Limitations: no limitations Patient Subjective Stated Complaint: Pt. states, "I started vomiting on jeremiah night and I had diarrhea. I've been better for a couple days but my left lower back has been hurting all day and now it is wrapping around to my abdomen under my left breast. I haven't peed much today either and earlier I wiped some blood. My period was 2 weeks ago." Triage Nursing Assessment: A&Ox3, skin p/w/d, resp even unlabored, in NAD, am bulated to room without difficulty. Physician History: Pt states she started with nausea, vomiting & diarrhea 3 days ago without blood. Yesterday pt states she started with intermittent sharp left flank and left lower back pain up to 7/10 in severity with episodes lasting up to 5 seconds. Pt denies shortness of air, headache, fever, dysuria. Allergies/Adverse Reactions: No Known Drug Allergies Allergy (Verified 04/21/23 09:43) Home Medications: No Reportable Medications [No Reported Medications] 05/06/24 [History] Hx Tetanus, Diphtheria Vaccination/Date Given: No Hx Influenza Vaccination/Date Given: No Hx Pneumococcal Vaccination/Date Given: No Immunizations Up to Date: No Travel Risk - International Travel Have you traveled outside of the country in past 3 weeks: No - Emerging Infectious Disease Are you exhibiting symptoms associated with any current EIDs: No - Review of Systems Constitutional: No Fever Respiratory: No Dyspnea Abdominal/Gastrointestinal: Nausea, Vomiting, Diarrhea, Other (left flank pain) Genitourinary Symptoms: No Dysuria Neurological: No Headache - Past Medical History Pertinent Past Medical History: No Neurological History: No Pertinent History ENT History: No Pertinent History Cardiac History: No Pertinent History Respiratory History: No Pertinent History Endocrine Medical History: No Pertinent History Musculoskeletal History: No Pertinent History GI Medical History: No Pertinent History History: No Pertinent History Psycho-Social History: No Pertinent History Female Reproductive Disorders: No Pertinent History Other Medical History: had R femur fracture as infant - Past Surgical History Past Surgical History: No Neuro Surgical History: No Pertinent History Cardiac: No Pertinent History Respiratory: Chest Surgery Gastrointestinal: No Pertinent History Genitourinary: No Pertinent History Musculoskeletal: No Pertinent History Female Surgical History: No Pertinent History Other Surgical History: femur fx - Female History Hx Last Menstrual Period: 2 weeks ago Hx Now: No - Social History Smoking Status: Never smoker Exposure to second hand smoke: No Drug Use: none Patient Lives Alone: No - Social Determinants of Health Will the patient participate in the screening: Declined to provide - Nursing Vital Signs Nursing Vital Signs: Initial Vital Signs Blood Pressure 117/93 05/06/24 20:42 O2 Sat by Pulse Oximetry 100 05/06/24 20:42 Pain Scale Pain Intensity 6 - Physical Exam General Appearance: alert Eye Exam: PERRL/EOMI Ears, Nose, Throat Exam: TMs normal, pharyngeal erythema (mild) Neck Exam: normal inspection Respiratory Exam: lungs clear Cardiovascular Exam: normal heart sounds Gastrointestinal/Abdomen Exam: No normal bowel sounds (B.S. mildly hyperactive & normotonic) Back Exam: normal inspection Extremity Exam: No pedal edema Neurologic Exam: alert, cooperative Skin Exam: warm, dry, No cyanosis SpO2 Interpretation: normal SpO2: 100 O2 Delivery: Room Air - Course Nursing assessment & vital signs reviewed: Yes EKG Interpreted by Me: RATE (72), Sinus Rhythm, Left [place] Deviation, Other (QTc = 434) - Radiology Exams Chest X-ray Interpretation: Interpreted by me, No Pneumonia - CT Exams Abdomen/Pelvis CT Interpretation: Tele-radiologist Report (See report.) Ordered Tests: Active Orders 24 hr Category Date Time Status EKG-ER Only STAT Care 05/06/24 20:57 Active IV Insertion STAT Care 05/06/24 20:57 Active ABDOMEN AND PELVIS W/0 CONTRAS [CT] Stat Exams 05/06/24 20:58 Completed CHEST 2 VIEWS (PA AND LAT) Stat Exams 05/06/24 20:57 Taken AMYLASE Stat Lab 05/06/24 21:15 Completed CBC W DIFF Stat Lab 05/06/24 21:15 Completed CMP Stat Lab 05/06/24 21:15 Completed CULTURE,URINE Stat Lab 05/06/24 21:00 Received HCG QUALITATIVE, SERUM Stat Lab 05/06/24 21:15 Completed LIPASE Stat Lab 05/06/24 21:15 Completed MAGNESIUM Stat Lab 05/06/24 21:15 Completed TROPONIN Q4H Lab 05/06/24 21:15 Completed TROPONIN Q4H Lab 05/07/24 01:00 Ordered TROPONIN Q4H Lab 05/07/24 05:00 Ordered UA W/RFX UR CULTURE Stat Lab 05/06/24 21:00 Completed Medication Summary Discontinued Medications Generic Name Dose Route Start Last Admin Trade Name Flora PRN Reason Stop Dose Admin Ketorolac Tromethamine 30 mg 05/06/24 20:57 05/06/24 21:04 Ketorolac Tromethamine 30 Mg/Ml Inj IV 05/06/24 20:58 30 mg STAT ONE Administration Ketorolac Tromethamine Confirm 05/06/24 21:03 Ketorolac Tromethamine 30 Mg/Ml Inj Administered 05/06/24 21:04 Dose 30 mg .ROUTE .STK-MED ONE Ondansetron HCl 4 mg 05/06/24 20:57 05/06/24 21:04 Ondansetron Hcl 4 Mg/2 Ml Vial IV 05/06/24 20:58 4 mg STAT ONE Administration Ondansetron HCl Confirm 05/06/24 21:03 Ondansetron Hcl 4 Mg/2 Ml Vial Administered 05/06/24 21:04 Dose 4 mg .ROUTE .STK-MED ONE Lab/Rad Data: Laboratory Result Diagrams 05/06/24 21:15 05/06/24 21:15 Laboratory Results 05/06/24 05/06/24 05/06/24 Range/Units 21:45 21:45 21:15 WBC (3.98-10.04) x10^3/uL RBC (3.93-5.22) x10^6/uL Hgb (11.2-15.7) g/dL Hct (34.1-44.9) % MCV (79.4-94.8) fL MCH (25.6-32.2) pg MCHC (32.2-35.5) g/dL RDW (11.7-14.4) % Plt Count (182-369) x10^3/uL MPV (9.4-12.3) fL Gran % (34.0-71.1) % Immature Gran % (Auto) (0.001-0.429) % Nucleat RBC Rel Count (0.00-0.2) % Eos # (Auto) (0.04-0.36) x10^3/uL Immature Gran # (Auto) (0.001-0.031) x10^3u/L Absolute Lymphs (auto) (1.18-3.74) x10^3/uL Absolute Monos (auto) (0.24-0.86) x10^3/uL Absolute Nucleated RBC (0.00-0.012) x10^3u/L Lymphocytes % (19.3-51.7) % Monocytes % (4.7-12.5) % Eosinophils % (0.7-5.8) % Basophils % (0.1-1.2) % Absolute Granulocytes (1.56-6.13) x10^3/uL Basophils # (0.01-0.08) x10^3/uL Sodium (135-145) mmol/L Potassium (3.5-5.1) mmol/L Chloride (98-107) mmol/L Carbon Dioxide (22-30) mmol/L Anion Gap (5-15) MEQ/L BUN (7-17) mg/dL Creatinine (0.52-1.04) mg/dL Estimated GFR ML/MIN Glucose (74-106) mg/dL Calcium (8.4-10.2) mg/dL Magnesium (1.6-2.3) mg/dL Total Bilirubin (0.2-1.3) mg/dL AST (14-36) U/L ALT (0-35) U/L Alkaline Phosphatase (38-126) U/L Troponin I (0.000-0.033) ng/mL Serum Total Protein (6.3-8.2) g/dL Albumin (3.5-5.0) g/dL Amylase (30-110) U/L Lipase (23-300) U/L Serum HCG, Qual NEGATIVE (NEGATIVE) Urine Color (Yellow) Urine Appearance (Clear) Urine pH (4.6-8.0) Ur Specific [place] (1.005-1.030) Urine Protein (Negative) Urine Glucose (UA) (Negative) mg/dL Urine Ketones (Negative) Urine Blood (Negative) Urine Nitrite (Negative) Urine Bilirubin (Negative) Urine Urobilinogen (0.2) mg/dL Ur Leukocyte Esterase (Negative) U Hyaline Cast (Auto) (0-2) /LPF Urine Microscopic RBC (0-5) /HPF Urine Microscopic WBC (0-5) /HPF Ur Epithelial Cells (None Seen) /HPF Urine Bacteria (None Seen) /HPF Urine Culture Reflexed (NO) Influenza Type A Ag NEGATIVE (NEGATIVE) Influenza Type B Ag NEGATIVE (NEGATIVE) RSV (PCR) NEGATIVE (NEGATIVE) SARS-CoV-2 (PCR) NEGATIVE (NEGATIVE) Group A Strep Antibody NOT DETECTED (NEGATIVE) 05/06/24 05/06/24 05/06/24 Range/Units 21:15 21:15 21:15 WBC 6.4 (3.98-10.04) x10^3/uL RBC 5.00 (3.93-5.22) x10^6/uL Hgb 14.9 (11.2-15.7) g/dL Hct 43.4 (34.1-44.9) % MCV 86.8 (79.4-94.8) fL MCH 29.8 (25.6-32.2) pg MCHC 34.3 (32.2-35.5) g/dL RDW 11.9 (11.7-14.4) % Plt Count 249 (182-369) x10^3/uL MPV 9.5 (9.4-12.3) fL Gran % 56.7 (34.0-71.1) % Immature Gran % (Auto) 0.5 H (0.001-0.429) % Nucleat RBC Rel Count 0.0 (0.00-0.2) % Eos # (Auto) 0.10 (0.04-0.36) x10^3/uL Immature Gran # (Auto) 0.03 (0.001-0.031) x10^3u/L Absolute Lymphs (auto) 1.80 (1.18-3.74) x10^3/uL Absolute Monos (auto) 0.81 (0.24-0.86) x10^3/uL Absolute Nucleated RBC 0.00 (0.00-0.012) x10^3u/L Lymphocytes % 28.0 (19.3-51.7) % Monocytes % 12.6 H (4.7-12.5) % Eosinophils % 1.6 (0.7-5.8) % Basophils % 0.6 (0.1-1.2) % Absolute Granulocytes 3.66 (1.56-6.13) x10^3/uL Basophils # 0.04 (0.01-0.08) x10^3/uL Sodium 141 (135-145) mmol/L Potassium 3.8 (3.5-5.1) mmol/L Chloride 106 (98-107) mmol/L Carbon Dioxide 26 (22-30) mmol/L Anion Gap 12.9 (5-15) MEQ/L BUN 11 (7-17) mg/dL Creatinine 0.64 (0.52-1.04) mg/dL Estimated GFR 123.4 ML/MIN Glucose 101 (74-106) mg/dL Calcium 9.3 (8.4-10.2) mg/dL Magnesium 1.8 (1.6-2.3) mg/dL Total Bilirubin 0.50 (0.2-1.3) mg/dL AST 24 (14-36) U/L ALT 15 (0-35) U/L Alkaline Phosphatase 35 L (38-126) U/L Troponin I < 0.012 (0.000-0.033) ng/mL Serum Total Protein 7.2 (6.3-8.2) g/dL Albumin 4.3 (3.5-5.0) g/dL Amylase 74 (30-110) U/L Lipase 109 (23-300) U/L Serum HCG, Qual (NEGATIVE) Urine Color (Yellow) Urine Appearance (Clear) Urine pH (4.6-8.0) Ur Specific [place] (1.005-1.030) Urine Protein (Negative) Urine Glucose (UA) (Negative) mg/dL Urine Ketones (Negative) Urine Blood (Negative) Urine Nitrite (Negative) Urine Bilirubin (Negative) Urine Urobilinogen (0.2) mg/dL Ur Leukocyte Esterase (Negative) U Hyaline Cast (Auto) (0-2) /LPF Urine Microscopic RBC (0-5) /HPF Urine Microscopic WBC (0-5) /HPF Ur Epithelial Cells (None Seen) /HPF Urine Bacteria (None Seen) /HPF Urine Culture Reflexed (NO) Influenza Type A Ag (NEGATIVE) Influenza Type B Ag (NEGATIVE) RSV (PCR) (NEGATIVE) SARS-CoV-2 (PCR) (NEGATIVE) Group A Strep Antibody (NEGATIVE) 05/06/24 Range/Units 21:00 WBC (3.98-10.04) x10^3/uL RBC (3.93-5.22) x10^6/uL Hgb (11.2-15.7) g/dL Hct (34.1-44.9) % MCV (79.4-94.8) fL MCH (25.6-32.2) pg MCHC (32.2-35.5) g/dL RDW (11.7-14.4) % Plt Count (182-369) x10^3/uL MPV (9.4-12.3) fL Gran % (34.0-71.1) % Immature Gran % (Auto) (0.001-0.429) % Nucleat RBC Rel Count (0.00-0.2) % Eos # (Auto) (0.04-0.36) x10^3/uL Immature Gran # (Auto) (0.001-0.031) x10^3u/L Absolute Lymphs (auto) (1.18-3.74) x10^3/uL Absolute Monos (auto) (0.24-0.86) x10^3/uL Absolute Nucleated RBC (0.00-0.012) x10^3u/L Lymphocytes % (19.3-51.7) % Monocytes % (4.7-12.5) % Eosinophils % (0.7-5.8) % Basophils % (0.1-1.2) % Absolute Granulocytes (1.56-6.13) x10^3/uL Basophils # (0.01-0.08) x10^3/uL Sodium (135-145) mmol/L Potassium (3.5-5.1) mmol/L Chloride (98-107) mmol/L Carbon Dioxide (22-30) mmol/L Anion Gap (5-15) MEQ/L BUN (7-17) mg/dL Creatinine (0.52-1.04) mg/dL Estimated GFR ML/MIN Glucose (74-106) mg/dL Calcium (8.4-10.2) mg/dL Magnesium (1.6-2.3) mg/dL Total Bilirubin (0.2-1.3) mg/dL AST (14-36) U/L ALT (0-35) U/L Alkaline Phosphatase (38-126) U/L Troponin I (0.000-0.033) ng/mL Serum Total Protein (6.3-8.2) g/dL Albumin (3.5-5.0) g/dL Amylase (30-110) U/L Lipase (23-300) U/L Serum HCG, Qual (NEGATIVE) Urine Color Dark Yellow A (Yellow) Urine Appearance Clear (Clear) Urine pH 5.5 (4.6-8.0) Ur Specific [place] >=1.030 A (1.005-1.030) Urine Protein 30 (Negative) Urine Glucose (UA) Negative (Negative) mg/dL Urine Ketones Trace A (Negative) Urine Blood Large A (Negative) Urine Nitrite Negative (Negative) Urine Bilirubin Small A (Negative) Urine Urobilinogen 1.0 A (0.2) mg/dL Ur Leukocyte Esterase Negative (Negative) U Hyaline Cast (Auto) 3-5 A (0-2) /LPF Urine Microscopic RBC 21-50 A (0-5) /HPF Urine Microscopic WBC 0-2 (0-5) /HPF Ur Epithelial Cells Moderate A (None Seen) /HPF Urine Bacteria Rare A (None Seen) /HPF Urine Culture Reflexed YES (NO) Influenza Type A Ag (NEGATIVE) Influenza Type B Ag (NEGATIVE) RSV (PCR) (NEGATIVE) SARS-CoV-2 (PCR) (NEGATIVE) Group A Strep Antibody (NEGATIVE) - Progress Progress: improved Counseled pt/family regarding: lab results, diagnosis, need for follow-up, rad results Medical Desision Making - Diagnostic Testing Diagnostic test were ordered, analyzed, and reviewed by me: Yes Radiological Interpretation: Teleradiologist Report - Departure Departure Disposition: Home Clinical Impression: Nausea & vomiting, Diarrhea, Low back pain, Left flank pain Condition: Stable Critical Care Time: No Referrals: MINA MERRITT MD [Primary Care Provider] - Follow up/PCP as directed Instructions: Flank Pain, Nausea and Vomiting, Adult ED, Diarrhea, Adult ED Additional Instructions: Follow up with private doctor tomorrow. Forms: Work/School Release Form
[2024-05-06] MEDS: Zofran 4 MG/2 ML VIAL IV ONE (21:04)
[2024-05-06] MEDS: TORAdol 30 mg Injection IV ONE (21:04)
[2024-05-06 21:16] LABS: Appearance Clear (Clear); Bacteria Rare /HPF (None Seen); Bilirubin Small (Negative); Blood Large (Negative); Epithelial Cells Moderate /HPF (None Seen); Glucose, Urine Negative (Negative); Ketones Trace (Negative); Leukocyte Esterase Negative (Negative); Nitrite Negative (Negative); Ph 5.5 (4.6-8.0); Protein,Urine Dip 30 (Negative); RBC 21-50 /HPF (0-5); Specific Gravity >=1.030 (1.005-1.030); WBC 0-2 /HPF (0-5)
[2024-05-06 21:21] LABS: Absolute Neutrophil Ct (ANC) 3.66 x10^3/uL (1.56-6.13); BASOPHIL % 0.6 % (0.1-1.2); Basophil (Absolute #) 0.04 x10^3/uL (0.01-0.08); Eosinophil % 1.6 % (0.7-5.8); Hematocrit 43.4 % (34.1-44.9); Hemoglobin 14.9 g/dL (11.2-15.7); IMMATURE GRAN # 0.03 x10^3u/L (0.001-0.031); IMMATURE GRAN % 0.5 % (0.001-0.429); Mean Cell Volume 86.8 fL (79.4-94.8); Mean Corpuscular Hemoglobin 29.8 pg (25.6-32.2); Mean Corpuscular Hgb Concent. 34.3 g/dL (32.2-35.5); Mean Platelet Volume 9.5 fL (9.4-12.3); Monocyte (Absolute #) 0.81 x10^3/uL (0.24-0.86); Monocytes % 12.6 % (4.7-12.5); Neutrophil % 56.7 % (34.0-71.1); Platelet Count 249 x10^3/uL (182-369); Red Cell Distribution Width 11.9 % (11.7-14.4); White Blood Count 6.4 x10^3/uL (3.98-10.04)
[2024-05-06 21:35] LABS: HCG SERUM TEST NEGATIVE (NEGATIVE)
[2024-05-06 21:37] LABS: ALBUMIN 4.3 g/dL (3.5-5.0); ANION GAP 12.9 MEQ/L (5-15); BILIRUBIN,TOTAL 0.5 mg/dL (0.2-1.3); Calcium 9.3 mg/dL (8.4-10.2); Creatinine 1 0.64 mg/dL (0.52-1.04); EST GLOMERULAR FILTRATION RATE 123.4 ML/MIN; MAGNESIUM 1.8 mg/dL (1.6-2.3); Potassium 3.8 mmol/L (3.5-5.1); Total Protein 7.2 g/dL (6.3-8.2)
--- NOTE | 2024-05-06 22:08 | XRAY ---
CLINICAL HISTORY: left flank pain COMPARISON: No prior studies are available for comparison. TECHNIQUE: Non-contrast CT of the abdomen and pelvis was performed, with the following protocol: axial images, and reconstructed coronal and sagittal images. No intravenous contrast was administered. One of the following dose reduction techniques was utilized for this exam: Automated exposure control, adjustment of the mA and/or kV according to patient size, and use of iterative reconstruction. FINDINGS: The visualized lung bases are clear except left lower lobe calcified granuloma. Abdomen: Liver: Normal in size, shape, and density. No focal lesions, cysts, or masses were identified. Gallbladder and Biliary System: The gallbladder is normal in size and shape. No wall thickening, pericholecystic fluid, or gallstones were identified. Pancreas: Pancreatic head, body, and tail are visualized and appear normal in size and density. No pancreatic masses or calcifications were noted. Spleen: Splenic size is within the upper limits of normal with normal shape, and density. No splenic lesions or masses were identified. Kidneys and Adrenal Glands: Both kidneys are normal in size, shape, and position. Cortical thickness is within normal limits. Left renal upper pole 2mm non-obstructing calyceal calculus. No right renal calculi or hydronephrosis. Adrenal glands are unremarkable. Appendix: The appendix is likely surgically removed, with clips at its base. Few prominent right ileo-colic lymph nodes. Pelvis: Urinary Bladder: Normal in contour and wall thickness. No intraluminal lesions. Uterus: Normal in size and contour. No masses or abnormal thickening. Satisfactory position of the IUCD. Ovaries: Not well visualized but no gross abnormalities noted. Vagina: Normal in contour and wall thickness. Cervix: No evidence of mass or abnormal thickening. Peritoneal and Retroperitoneal Structures: No free fluid or abnormal fluid collections were identified within the abdomen or pelvis. No lymphadenopathy was noted. Bowel: The visualized bowel loops are normal in caliber and appearance. No evidence of bowel obstruction or wall thickening. Bones and Soft Tissues: Pelvic bones and soft tissues are unremarkable. No fractures or abnormal masses were identified. IMPRESSION: 1. Left renal upper pole 2mm non-obstructing calyceal calculus. 2. No evidence of obstructive uropathy. Electronically Signed by: Beverley Doherty MD. (05/06/2024 22:03:48 EST)
[2024-05-06 22:22] LABS: INFLUENZA A NEGATIVE (NEGATIVE); INFLUENZA B NEGATIVE (NEGATIVE); RESPIRATORY SYNCTIAL VIRUS NEGATIVE (NEGATIVE); SARS-CoV-2 Xpert Express NEGATIVE (NEGATIVE)
[2024-05-06 23:24] VITALS: RESP 19
[2024-05-07 00:37] VITALS: BP 111/67; PULSE 68; O2SAT 99
--- NOTE | 2024-05-07 08:33 | XRAY ---
Indication: Pain. Comparison: None PA/lateral chest demonstrates small left base calcified granuloma. Remaining heart and lungs normal. Bony thorax intact with minimal double curvature scoliosis.
== END 2024-05-07 00:43 | disposition home or self-care (01) ==
LOC: ED 20:10
DX: R11.2 Nausea with vomiting, unspecified (principal); R19.7 Diarrhea, unspecified; M54.50 Low back pain, unspecified; R10.9 Unspecified abdominal pain
CPT/HCPCS: 0241U; 36415; 71046; 74176; 80053; 81001; 82150; 83690; 83735; 84484; 84703; 85025; 87086; 87651; 93005; 96374; 96375; 99284; J1885; J2405